=== PATIENT | male | born 1940 | race Caucasian/White ===

== ENCOUNTER → 2018-10-14 13:23 | Outpatient (CLI) | payer MEDICARE, SELFPAY ==
[2016-09-01 09:00] VITALS: BMI 30.7
--- NOTE | 2018-10-14 13:28 | RAD_ITS ---
STUDY: X-RAY - LUMBAR SPINE REASON FOR EXAM: Male, 78 years old. Low back pain, right leg pain TECHNIQUE: 5 view(s) of the lumbar spine were obtained. COMPARISON: None FINDINGS: Normal lumbar lordosis. There is no substantial scoliosis. There is a normal alignment of the vertebrae from L1 to L4. There is a grade 1 spondylolisthesis at L4-5. L5 and S1 align anatomically.. There is multilevel endplate spondylosis of the lumbar vertebrae. There is multi-level degenerative disc disease with multi-level disc space narrowing, most pronounced at L4-5. There is no demonstrated fracture. There is atherosclerotic calcification of the abdominal aorta without a demonstrated aneurysm. RAD/L/S Spine Min 4 Views IMPRESSION: Degenerative changes of the spine, as detailed above. No demonstrated fracture, grade 1 spondylolisthesis at L4-5 Electronically Signed: Madi Butterfield MD at 13:59 EDT , Service support ,
== END ==
PROVIDERS: Family Provider Preventive Medicine Occupational Medicine; PCP Preventive Medicine Occupational Medicine; Referring Provider Nurse Practitioner Family; Visit Provider Nurse Practitioner Family
DX: M54.9 Dorsalgia, unspecified (principal)
CPT/HCPCS: 72110

== ENCOUNTER → 2018-12-30 12:55 | Outpatient (CLI) | payer MEDICARE, SELFPAY ==
[2016-09-01 09:00] VITALS: BMI 30.7
--- NOTE | 2018-12-30 12:59 | RAD_ITS ---
STUDY: X-RAY - CERVICAL SPINE REASON FOR EXAM: Male, 78 years old. BRACHIAL RADICULITIS -- h/o neck injury couple years ago s/p fall and hit his head/neck TECHNIQUE: 3 view(s) of the cervical spine were obtained. COMPARISON: CT cervical spine dated September 01, 2016 FINDINGS: Normal cervical lordosis. There is multi-level endplate spondylosis. There is multi-level degenerative disc disease with multilevel disc space narrowing. Findings are moderate at C6/C7 and C7/T1 The soft tissue structures are unremarkable. RAD/Cerv Spine 2 or 3 Views IMPRESSION: Moderate degenerative changes of the spine. Electronically Signed: Jackson Tate MD at 8:23 EDT Tel , Service support ,
== END ==
PROVIDERS: Family Provider Preventive Medicine Occupational Medicine; PCP Preventive Medicine Occupational Medicine; Referring Provider Preventive Medicine Occupational Medicine; Visit Provider Preventive Medicine Occupational Medicine
DX: M54.12 Radiculopathy, cervical region (principal); M54.2 Cervicalgia; G89.29 Other chronic pain
CPT/HCPCS: 72040

== ENCOUNTER → 2019-01-10 13:48 | Outpatient (CLI) | payer MEDICARE, SELFPAY ==
--- NOTE | 2019-01-10 13:56 | MRI_ITS ---
STUDY: MRI CERVICAL SPINE WITH AND WITHOUT CONTRAST REASON FOR EXAM: Male, 78 years old. Left weakness brachial radiculitis neck pain, history of prostate and thyroid cancer TECHNIQUE: Standardized fat and water weighted pulse sequences were obtained in the sagittal and axial following administration of IV Dotarem 18. COMPARISON: 01 September 2016 FINDINGS: Craniocervical junction and cervical spine are intact and alignment with minor, less than 2 mm, degree of intersegmental displacement. Marrow and paraspinal soft tissues are normal. There is moderate spondylotic compression at C3-C4, mild at C2-C3, C4-C5. There is ill-defined approximately 8 mm focus of myelomalacia at C3-C4. Remainder of the cord is normal in size, shape and signal. There are multilevel various degree predominantly right-sided foraminal stenoses. Appearance is similar to prior CT. MRI/Spine Cervical W/WO Contrast IMPRESSION: 1. Moderate spondylotic compression at C3-C4 with mild myelomalacia. Neurosurgical referral is advised. Electronically Signed: Franca Hadley, at 17:02 EDT Tel , Service support ,
[2019-01-10 14:30] LABS: EGFR FINGERSTICK > 60.0000 mL/min (>60)
== END ==
PROVIDERS: Family Provider Preventive Medicine Occupational Medicine; PCP Preventive Medicine Occupational Medicine; Referring Provider Preventive Medicine Occupational Medicine; Visit Provider Preventive Medicine Occupational Medicine
DX: R29.898 Other symptoms and signs involving the musculoskeletal system (principal); M54.12 Radiculopathy, cervical region
CPT/HCPCS: 72156; A9575

== ENCOUNTER → 2019-06-09 10:13 | Outpatient (CLI) | payer MEDICARE, SELFPAY ==
--- NOTE | 2019-06-09 10:32 | MRI_ITS ---
STUDY: MRI BRAIN WITHOUT CONTRAST REASON FOR EXAM: Male, 79 years old. focal neuro deficit, L sided weakness TECHNIQUE: Standardized multiplanar fat and water weighted pulse sequences were obtained. COMPARISON: CT of the head dated September 01, 2016 FINDINGS: There is mild cerebral atrophy with widening of the extra-axial spaces and ventricular dilatation. There are multiple white matter hyperintensities, distributed throughout the deep white matter tracts of the cerebral hemispheres, consistent with moderate chronic white matter ischemic changes. Normal bilateral basal ganglia. Normal thalami. There is no extra-axial fluid accumulation. Normal flow voids within the major intracranial circulation suggesting patency by spin echo criteria. Normal sella turcica, pituitary gland, infundibular stalk, optic chiasm and hypothalamus. Normal tectal plate and pineal gland. There are chronic white matter ischemic changes of the lizzy. The midbrain and medulla are otherwise normal. Again noted is the moderate atrophy of the cerebellum. Normal basal cisterns. Normal bilateral temporal bones. MRI/Brain without Contrast IMPRESSION: No acute intracranial abnormality. Moderate involutional changes. Electronically Signed: Jackson Tate MD at 12:59 EDT Tel , Service support ,
--- NOTE | 2019-06-09 10:32 | MRI_ITS ---
STUDY: MRI LUMBAR SPINE WITHOUT CONTRAST REASON FOR EXAM: Male, 79 years old. left sided weakness, spondylolisthesis TECHNIQUE: Standardized fat and water weighted pulse sequences were obtained in the sagittal and axial planes. COMPARISON: February 28, 2010 FINDINGS: T12-L1: Normal endplates. Normal disc height, desiccation and normal morphology. Normal bilateral facet joints. Normal central canal and bilateral lateral recesses. Normal bilateral intervertebral neural foramina. Normal lumbar lordosis. There is no substantial scoliosis. Normal conus medullaris that terminates at T12-L1 L1-2: Normal endplates. Normal disc height, desiccation and normal morphology. Normal bilateral facet joints. Normal central canal and bilateral lateral recesses. Normal bilateral intervertebral neural foramina. L2-3: Normal endplates. Normal disc height, desiccation and minor annular bulge.. Normal bilateral facet joints. Normal central canal and bilateral lateral recesses. Mild bilateral neural foraminal encroachment.. L3-4: Normal endplates. Normal disc height, desiccation and mild annular bulge. Bilateral facet arthropathy.. Mild narrowing of the central canal. Normal bilateral lateral recesses. Moderate bilateral neuroforaminal stenosis. L4-5: Grade 1 spondylolisthesis. Narrowed disc space with desiccation of disc and mild bulging disc osteophyte complex. Bilateral facet arthropathy and thickening of ligamenta flava greater on the right. Mild narrowing of the central canal. Moderate left lateral recess stenosis and severe narrowing on the right. Severe bilateral neuroforaminal stenosis exaggerated by shortened pedicles. L5-S1: Normal endplates. Normal disc height, desiccation and moderate annular bulge.. Bilateral facet arthropathy.. Mild narrowing of the central canal and bilateral recesses. Moderate to severe bilateral neuroforaminal stenosis.. Normal visualized sacral ala. Normal visualized paraspinous soft tissue structures. There is progressive worsening of disc disease noted at L3-4 since prior study. MRI/Spine Lumbar (Routine) IMPRESSION: No evidence for acute fracture or subluxation. Multilevel disc degeneration and spinal stenosis secondary to disc disease and facet arthropathy and thickening of ligamenta flava more severe at L4-5 exaggerated by shortened pedicles Electronically Signed: David Donohue MD at 16:24 EDT , Service support ,
== END ==
PROVIDERS: PCP Preventive Medicine Occupational Medicine
DX: R53.1 Weakness (principal); M43.10 Spondylolisthesis, site unspecified
CPT/HCPCS: 70551; 72148

== ENCOUNTER → 2019-08-31 12:17 | Outpatient (CLI) | payer MEDICARE, SELFPAY ==
--- NOTE | 2019-08-31 12:26 | MRI_ITS ---
ACR Level 3 findings have been noted. An addendum which confirms receipt of the report will follow. STUDY: MRI CERVICAL SPINE WITHOUT CONTRAST REASON FOR EXAM: Male, 79 years old. 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 COMPARISON: January 10, 2019 FINDINGS: Normal foramen magnum and brainstem-cervical cord junction. There is straightening of the normal cervical lordosis. C2-3: There is minimal disc space narrowing and endplates spondylosis. Mild disc osteophyte complex with mild central canal stenosis. Uncovertebral and facet arthropathy with mild right and minimal left foraminal stenosis. Findings are stable since prior examination C3-4: There is mild disc space narrowing and endplates spondylosis. Moderate disc osteophyte complex and dorsal ligamentous buckling with severe central canal stenosis and impingement of the spinal cord uncovertebral and facet arthropathy with severe right and moderate left foraminal stenosis. Findings are slightly increased since the prior examination. Again noted is minimal increased cord signal at this level, suggestive of myelomalacia C4-5: There is moderate disc space narrowing and endplates spondylosis. Mild disc osteophyte complex with mild central canal stenosis. Uncovertebral and facet arthropathy with moderate right and mild left foraminal stenosis. Findings are stable since prior examination C5-6: There is moderate disc space narrowing and endplates spondylosis. Mild disc osteophyte complex with mild central canal stenosis. Uncovertebral and facet arthropathy with severe right and mild left foraminal stenosis. There is minimal anterolisthesis. Findings are stable since prior examination C6-7: There is moderate disc space narrowing and endplates spondylosis. Mild disc osteophyte complex without significant central canal stenosis. Uncovertebral and facet arthropathy with mild right and mild left foraminal stenosis. Findings are stable since prior examination C7-T1: There is severe disc space narrowing and endplates spondylosis. Mild disc osteophyte complex with mild central canal stenosis. Uncovertebral arthropathy with moderate right and mild left thrombosis. Findings are stable since the prior examination. MRI/Spine Cervical (Routine) IMPRESSION: C3/C4: Slightly increased severe central canal stenosis with cord compression. Electronically Signed: Jackson Tate MD at 14:11 EDT Tel , Service support ,
== END ==
PROVIDERS: PCP Preventive Medicine Occupational Medicine; Referring Provider Psychiatry & Neurology Neurology; Visit Provider Psychiatry & Neurology Neurology
DX: G12.29 Other motor neuron disease (principal)
CPT/HCPCS: 72141

== ENCOUNTER → 2020-01-24 13:49 | Outpatient (CLI) | payer MEDICARE, SELFPAY ==
--- NOTE | 2020-01-24 14:00 | RAD_ITS ---
STUDY: X-RAY - CERVICAL SPINE REASON FOR EXAM: Male, 79 years old. POST OP FOLLOW UP TECHNIQUE: 8 view(s) of the cervical spine were obtained including flexion and extension. COMPARISON: None FINDINGS: Normal anterior atlantoaxial articulation. Normal odontoid process. Decreased cervical lordosis. Postsurgical changes status post anterior fusion at C3-4.. There is narrowing of C4-5 C5-6, C6-7 and C7-T1 with osteophytic spurring Films obtained in flexion-extension demonstrate limited range of motion and no evidence for gross instability The soft tissue structures are unremarkable. RAD/Cerv Spine Obl/Flex/Ext Comp IMPRESSION: Moderate spondylosis. Postsurgical changes status post anterior fusion at C3-4 Electronically Signed: David Donohue MD at 22:37 EST , Service support ,
== END ==
PROVIDERS: PCP Preventive Medicine Occupational Medicine
DX: G95.9 Disease of spinal cord, unspecified (principal)
CPT/HCPCS: 72052

== ENCOUNTER 2020-07-16 08:21 | Emergency (ER) | payer MEDICARE, SELFPAY ==
[2020-07-16 08:23] VITALS: BP 173/80; PULSE 86; RESP 18; TEMP 36.6; O2SAT 98; BMI 36.3
--- NOTE | 2020-07-16 08:45 | EKG12_ITS ---
Test Reason : PALPS Blood Pressure : / mmHG Vent. Rate : 082 BPM Atrial Rate : 082 BPM P-R Int : 166 ms QRS Dur : 076 ms QT Int : 358 ms P-R-T Axes : 036 001 060 degrees QTc Int : 418 ms Sinus rhythm with sinus arrhythmia with occasional Premature ventricular complexes Low voltage QRS Borderline ECG Confirmed by ELE ADKINS, BEVERLEY ([id number]), primer expeditor and drier KESHIA GUILLERMO ([id number]) on 07/18/2020 8:56:21 AM Referred By: SUSI Confirmed By:BEVERLEY MARLOW MD
--- NOTE | 2020-07-16 08:47 | ED.VIS.GEN ---
History of Present Illness Chief Complaint: Palpitations Informant: Patient, Significant Other Narrative: 80-year-old male presents for the evaluation of palpitations. He reports a history of hypertension hypercholesterolemia and acquired hypothyroidism. He states that yesterday morning he was laying in bed and had about 3 minutes of sensation that his heart was racing and that resolved and the rest of his day was fine. This morning he was laying on his right side and his heart was racing again and he felt short of breath. It resolved about 10 or 15 minutes. He denies any known lung conditions. No chest pain. He states he feels extremely anxious right now. - Past Medical History (1) Benign essential hypertension Status: Chronic (2) Familial combined hyperlipidemia Status: Chronic (3) Former smoker Status: Chronic Comment: Z87.891 (4) Personal history of skin cancer Status: Chronic Comment: Z85.828 (5) history of hemorrhagic stroke Status: Chronic Past Medical History - Allergies and Home Meds Allergies/Adverse Reactions: Allergies guaifenesin [From Entex [place]] Allergy (Verified 09/01/16 09:11) Unknown PER DR STRONG'S ORDERS phenylephrine [From [employer]tex [place]] Allergy (Verified 09/01/16 09:11) Unknown PER DR STRONG'S ORDERS phenylpropanolamine [From [employer]tex [place]] Allergy (Verified 09/01/16 09:11) Unknown PER DR STRONG'S ORDERS Primary Care Physician: Jonathan Arredondo DO [Primary Care Provider] - As soon as possible Surgical History: noncontributory Lives: Spouse/ Significant Other Smoking Status: Former smoker Drugs: None Review of Systems General: Denies: Chills, Fever, Sweats Eyes: Denies: Visual changes - bilaterally, Diplopia ENT: Denies: Rhinorrhea, Sore throat Cardiovascular: Reports: Palpitations, Heart racing. Denies: Chest pain Respiratory: Reports: Dyspnea. Denies: Cough, Dyspnea on exertion Gastrointestinal: Denies: Abdominal pain, Nausea, Vomiting, Diarrhea, Melena, Hematochezia Genitourinary: Denies: Dysuria, Hematuria, Frequency Musculoskeletal: Denies: Back pain, Extremity Pain Skin: Denies: Rash, Wounds Neurological: Denies: Headache, Weakness, Numbness Physical Exam Vital Signs/Narrative: Vital Signs Temp Pulse Resp BP Pulse Ox 07/16/20 08:23 97.8 F 86 18 173/80 H 98 Inital Vital Signs reviewed: Yes General: Well nourished, Well developed, No Acute Distress Head: Normocephalic, Atraumatic Eyes: Perrl, EOMI ENT: Moist mucous membranes, No rhinorrhea Neck: Supple, Nontender Cardiovascular: Regular rate, Regular rhythm, No murmurs Respiratory: No distress, CTA bilaterally, Chest nontender Abdomen: Soft, Nontender, Nondistended, Normal bowel sounds Back: Nontender, Normal Inspection Extremities: Nontender, No edema Skin: Normal color, No rash Neurological: Alert, Oriented x3, Cranial nerves II-XII grossly intact, Normal Strength, Normal Sensation Psychological: Normal affect, Normal Mood Diagnostic/Tx/Re-eval Clinical Impression(s) from Imaging Studies Chest X-Ray 07/16/20 08:56 IMPRESSION: Mild increased markings at the lung bases suggests a mild degree of linear scarring. Electronically Signed: Jeff Justice MD at 9:12 EDT , Service support , Laboratory Last Values WBC 7.6 K/mm3 (4.4-11.0) 07/16/20 09:00 RBC 5.26 M/mm3 (4.6-6.2) 07/16/20 09:00 Hgb 14.5 g/dL (13.0-16.5) 07/16/20 09:00 Hct 45.3 % (40-54) 07/16/20 09:00 MCV 86.1 fL (80-94) 07/16/20 09:00 MCH 27.6 pg (27.0-32.0) 07/16/20 09:00 MCHC 32.0 g/dL (32-36) 07/16/20 09:00 RDW Std Deviation 41.1 fl (35.1-43.9) 07/16/20 09:00 RDW Coeff of Nicky 13.2 % (11.6-14.6) 07/16/20 09:00 Plt Count 240 K/mm3 (150-450) 07/16/20 09:00 MPV 9.5 fl (6.2-12.0) 07/16/20 09:00 Immature Gran % (Auto) 0.400 % (0.0-0.9) 07/16/20 09:00 Neut % (Auto) 54.5 % (47-70) 07/16/20 09:00 Lymph % (Auto) 34.6 % (19-41) 07/16/20 09:00 [place] % (Auto) 7.1 % (0-10) 07/16/20 09:00 Eos % (Auto) 2.9 % (0-5) 07/16/20 09:00 Baso % (Auto) 0.5 % (0-1) 07/16/20 09:00 Absolute Neuts (auto) 4.2 X10^3/uL (2.0-7.7) 07/16/20 09:00 Absolute Lymphs (auto) 2.63 X10^3/uL (0.83-4.51) 07/16/20 09:00 Nucleated RBC % 0 % (0-5) 07/16/20 09:00 PT 12.1 SECONDS (11.7-14.9) 07/16/20 09:00 INR 1.0 07/16/20 09:00 APTT 27.9 Seconds (24.1-36.2) 07/16/20 09:00 Sodium 140 mmol/L (136-145) 07/16/20 09:00 Potassium 4.0 mmol/L (3.5-5.1) 07/16/20 09:00 Chloride 103 mmol/L (98-107) 07/16/20 09:00 Carbon Dioxide 31.0 mmol/L (21.0-32.0) 07/16/20 09:00 Anion Gap 6 (5-15) 07/16/20 09:00 BUN 19 mg/dL (7-18) H 07/16/20 09:00 Creatinine 1.16 mg/dL (0.70-1.30) 07/16/20 09:00 Estim Creat Clear Calc 45.83 ml/min 07/16/20 09:00 Est GFR (MDRD) Af Amer 78 mL/min (>60) 07/16/20 09:00 Est GFR (MDRD) Non-Af 64 mL/min (>60) 07/16/20 09:00 BUN/Creatinine Ratio 16.4 RATIO (10-20) 07/16/20 09:00 Glucose 110 mg/dL (74-106) H 07/16/20 09:00 Calcium 8.8 mg/dL (8.5-10.1) 07/16/20 09:00 Magnesium 2.1 mg/dL (1.6-2.6) 07/16/20 09:00 Troponin I < 0.015 ng/mL (<0.045) 07/16/20 09:00 TSH 2.05 uIU/mL (0.358-3.74) 07/16/20 09:00 - EKG Initial EKG Interpretation: Sinus Rhythm - EKG demonstrates a sinus rhythm with sinus arrhythmia with noted PVCs. Ventricular rate at 82. - Medical Decision Making Patient was extremely anxious and I gave him 1/2 mg of Ativan. He has been resting comfortably. Heart rate is down into the 70s. he was observed on the monitors had no dysrhythmias. He has has had some PVCs noted. EKG is sinus. Basic blood work including electrolytes are negative. My interpretation of the chest x-ray is no acute disease. Normal mediastinal silhouette. Approximately 2-1/2 hours on the monitor no dysrhythmias were noted. Patient will be discharged home instructions to follow-up with his primary care doctor. ED Disposition - Plan for ED Patient: Disposition: Home or Assisted Living Diagnosis: Palpitations Instructions: ED Palpitations Referrals: Jonathan Arredondo DO [Primary Care Provider] - As soon as possible
--- NOTE | 2020-07-16 08:56 | RAD_ITS ---
STUDY: X-RAY CHEST REASON FOR EXAM: Male, 80 years old. Chest pain TECHNIQUE: Single AP portable view of the chest. COMPARISON: Comparison is made with prior study dated 12/04/2012. FINDINGS: EKG electrodes are seen. There are mild increased linear markings at the lung bases suggestive of mild scarring. There is no demonstrated pleural abnormality. Normal size heart. Normal mediastinum and bianka. Normal visualized pulmonary arteries. There is atherosclerotic calcification of the aortic arch with tortuosity. There are diffuse degenerative changes of the visualized thoracic spine. Normal visualized ribs, clavicles, and shoulders. There is no demonstrated abnormality of the visualized soft tissue structures of the upper abdomen. RAD/Chest 1 View (Portable) IMPRESSION: Mild increased markings at the lung bases suggests a mild degree of linear scarring. Electronically Signed: Jeff Justice MD at 9:12 EDT , Service support ,
[2020-07-16] MEDS: LORazepam 2 MG/ML Syringe 0.5 MG IV (09:01)
[2020-07-16 09:16] LABS: Absolute Lymphocyte Count 2.63 X10^3/uL (0.83-4.51); Absolute Neutrophil Count 4.2 X10^3/uL (2.0-7.7); Basophil# 0.04 X10^3/uL; Basophil% 0.5 % (0-1); Eosinophil# 0.22 X10^3/uL; Eosinophils% 2.9 % (0-5); Hematocrit 45.3 % (40-54); Hemoglobin 14.5 g/dL (13.0-16.5); Lymphocyte # 2.63 X10^3/ul (0.83-4.51); Lymphocyte % 34.6 % (19-41); Mean Corpuscular Hgb 27.6 pg (27.0-32.0); Mean Corpuscular Volume 86.1 fL (80-94); Mean Platelet Vol. 9.5 fl (6.2-12.0); Monocyte# 0.54 X10^3/uL; Monocyte% 7.1 % (0-10); NRBC Flagged by Analyzer 0 % (0-5); Neutrophil # 4.15 X10^3/uL (2.7-7.7); Neutrophil % 54.5 % (47-70); Platelet Count 240 K/mm3 (150-450); RBC Distribution Width CV 13.2 % (11.6-14.6); RBC Distribution Width SD 41.1 fl (35.1-43.9); Red Blood Count 5.26 M/mm3 (4.6-6.2); White Blood Count 7.6 K/mm3 (4.4-11.0)
[2020-07-16 09:24] LABS: Prothrombin Time (Protime)PT. 12.1 SECONDS (11.7-14.9)
[2020-07-16 09:25] LABS: Partial Thromboplast Time 27.9 Seconds (24.1-36.2)
[2020-07-16 09:41] LABS: Anion Gap 6 (5-15); BUN 19 mg/dL (7-18); BUN/Creat Ratio 16.4 RATIO (10-20); Calcium,Total 8.8 mg/dL (8.5-10.1); Chloride 103 mmol/L (98-107); Creatinine, Serum 1.16 mg/dL (0.70-1.30); EST Glomerular Filtration Rate 64 mL/min (>60); Est Glom Filt Rate - Afr Amer 78 mL/min (>60); Estimated Creatinine Clearance 45.83 ml/min; Glucose 110 mg/dL (74-106); Magnesium 2.1 mg/dL (1.6-2.6); Sodium Level 140 mmol/L (136-145); Thyroid Stim Hormone (TSH) 2.05 uIU/mL (0.358-3.74)
[2020-07-16 10:18] VITALS: BP 147/70; PULSE 69; RESP 18; O2SAT 96
[2020-07-16 11:23] VITALS: BP 140/69; PULSE 78; RESP 16; O2SAT 96
== END 2020-07-16 11:23 | disposition home or self-care (01) ==
PROVIDERS: Emergency Provider Emergency Medicine; PCP Preventive Medicine Occupational Medicine
DX: R00.2 Palpitations (principal); I10 Essential (primary) hypertension; E78.49 Other hyperlipidemia; E03.9 Hypothyroidism, unspecified; Z87.891 Personal history of nicotine dependence; Z86.73 Personal history of transient ischemic attack (TIA), and cerebral infarction without residual deficits; Z85.828 Personal history of other malignant neoplasm of skin; R06.02 Shortness of breath
CPT/HCPCS: 71045; 80048; 83735; 84443; 84484; 85025; 85610; 85730; 93005; 96374; 99285; A4216

== ENCOUNTER → 2020-11-07 13:06 | Outpatient (CLI) | payer MEDICARE, SELFPAY ==
[2020-11-07 14:29] LABS: Thyroid Stim Hormone (TSH) 2.08 uIU/mL (0.358-3.74)
== END ==
PROVIDERS: PCP Preventive Medicine Occupational Medicine; Referring Provider Preventive Medicine Occupational Medicine; Visit Provider Preventive Medicine Occupational Medicine
DX: E03.9 Hypothyroidism, unspecified (principal)
CPT/HCPCS: 36415; 84443

== ENCOUNTER → 2020-11-13 10:54 | Outpatient (CLI) | payer MEDICARE, SELFPAY | PROVIDERS: PCP Preventive Medicine Occupational Medicine; Referring Provider Preventive Medicine Occupational Medicine; Visit Provider Preventive Medicine Occupational Medicine | DX: R00.2 Palpitations (principal) | CPT/HCPCS: 93225; 93226 ==

== ENCOUNTER 2021-05-26 04:26 | Inpatient (IN) | payer MEDICARE, SELFPAY ==
[2021-05-26] VITALS (14 sets, daily range): BP systolic 126–153; BP diastolic 61–85; PULSE 75–98; RESP 14–18; TEMP 36.4–36.7; O2SAT 83–96; BMI 37.0; BMI 35.4
--- NOTE | 2021-05-26 04:36 | CT_ITS ---
STUDY: CT CERVICAL SPINE WITHOUT CONTRAST REASON FOR EXAM: Male, 81 years old. fall, neck injury RADIATION DOSAGE (If Supplied By Facility): CTDIvol = ( 25.94 ) mGy, DLP = ( 545.88 ) mGycm TECHNIQUE: High resolution transaxial imaging was performed without contrast material. Sagittal and coronal images were reconstructed. Individualized dose optimization techniques were used for this CT. COMPARISON: None FINDINGS: Normal craniovertebral junction. Normal anterior atlantoaxial articulation. Normal odontoid process. There is straightening of the normal cervical lordosis. Normal vertebral bodies and posterior osseous elements. C2-3: Normal endplates. Normal disc height and morphology. Normal central canal and intervertebral neuroforamina. C3-4, there is anterior fusion. There is solid bone bridging between the vertebral bodies. C4-5, C5-6, C6-7: Endplate spondylosis. Central and paracentral disc bulge. Degenerative changes of the bilateral facet joints and uncovertebral joints. [id number] narrowing of the central canal and the bilateral intervertebral neural foramina. C7-T1: Normal endplates. Normal disc height and morphology. Normal central canal and intervertebral neuroforamina. Normal visualized soft tissue structures. CT/Spine Cervical without Contras IMPRESSION: Multilevel degenerative changes, as described above. Electronically Signed: Colleen Bass MD at 5:28 EST ,
--- NOTE | 2021-05-26 04:36 | RAD_ITS ---
STUDY: X-RAY - LUMBAR SPINE REASON FOR EXAM: Male, 81 years old patient with low back pain after fall. TECHNIQUE: AP and lateral view(s) of the lumbar spine were obtained. COMPARISON: MRI of the lumbar spine dated 06/09/2019. FINDINGS: Normal lumbar lordosis. There is no substantial scoliosis. There is a normal alignment of the vertebrae. There is multilevel endplate spondylosis of the lumbar vertebrae. There is multi-level degenerative disc disease with multi-level disc space narrowing. There is no demonstrated fracture. There is mild anterolisthesis at L4-5. There is atherosclerotic calcification of the abdominal aorta without a demonstrated aneurysm. There is no obvious organomegaly, mass, or dilated bowel. RAD/Lumbar Spine 2 or 3 Views IMPRESSION: Multilevel degenerative disc disease and degenerative arthropathy of the lumbar spine. Electronically Signed: Dayanara Mock MD at 5:56 EST ,
--- NOTE | 2021-05-26 04:36 | CT_ITS ---
STUDY: CT BRAIN WITHOUT CONTRAST REASON FOR EXAM: Male, 81 years old. fall/trauma RADIATION DOSAGE (If Supplied By Facility): CTDIvol = ( 44.99 ) mGy, DLP = ( 829.85 ) mGycm TECHNIQUE: Transaxial CT imaging of the brain was performed without administration of intravenous contrast material. Individualized dose optimization techniques were used for this CT. COMPARISON: No relevant priors. FINDINGS: Normal soft tissue structures. Normal calvarium. There is moderate cerebral atrophy with widening of the extra-axial spaces and ventricular dilatation. There are areas of decreased attenuation within the white matter tracts of the supratentorial brain, consistent with microvascular disease changes. Normal basal ganglia and thalami. Normal brainstem. Severe cerebellar atrophy. There is no intracranial hemorrhage. There are no findings of an acute ischemic infarction. Normal visualized paranasal sinuses. CT/Brain/Head without Contrast IMPRESSION: Chronic involutional changes of the brain. Electronically Signed: Colleen Bass MD at 5:23 EST ,
--- NOTE | 2021-05-26 04:36 | RAD_ITS ---
STUDY: X-RAY - THORACIC SPINE REASON FOR EXAM: Male, 81 years old patient with back pain after fall. TECHNIQUE: AP and lateral view(s) of the thoracic spine were obtained. COMPARISON: Prior comparable comparison studies are not available for review at this time. FINDINGS: The patient has had previous surgery in the cervical spine. Normal kyphosis of the thoracic spine. There is no substantial scoliosis. There is demineralization of the thoracic spine with endplate spondylosis. There is multilevel disc space narrowing of the thoracic spine. The soft tissue structures are unremarkable. RAD/Thoracic Spine 2 Views IMPRESSION: 1. No evidence for acute compression fracture. 2. Multilevel degenerative changes of the thoracic spine. Electronically Signed: Dayanara Mock MD at 5:59 EST ,
--- NOTE | 2021-05-26 04:37 | EDS_ITS ---
HPI HPI - Fall History of Present Illness Chief Complaint: Fall Informant: patient, spouse/S.O. and EMS Occured/Mechanism Occurred: Today (JPTA) Mechanism/Context: Yes same level fall and Yes trip Usually ambulates: Walker (Only when walking short distances otherwise in wheelchair) Pain/Injury Pain Location: head, neck and back Quality of Pain: Aching Current Severity: 0/10 (since I'm just sitting here) Maximum Severity: Moderate Worsened by: movement Relieved by: remaining still Associated Symptoms Associated Symptoms: Negative for Parasthesias, Weakness, Loss of function, Loss of consciousness and Amnesia Narrative Narrative: This patient lives at home with his and has a history of spinal stenosis to the point where he cannot walk and for the most part is wheelchair- bound, although he uses his walker to transition and to walk very short distances such as from the bedroom to the bathroom at home which is what he was doing tonight and his foot or walker or both got caught up and he tripped and fell. He had no prodromal symptoms and has had no recent illness. Hit the back of his head, neck and back, and was found lying on his left hip by EMS where he is also having pain. [facility] Medical History Arthritis Hypertension Spinal stenosis Stroke/cerebrovascular accident Home Medications amlodipine 10 mg PO QHS 12/10/15 [History Last Taken 07/15/20] atorvastatin 20 mg PO QHS 12/10/15 [History Last Taken 07/15/20] levothyroxine 137 mcg PO DAILY 12/10/15 [History Last Taken 07/16/20] Centrum Silver 1 ea PO DAILY 03/28/16 [History Last Taken 07/15/20] calcium carbonate 2,000 mg PO DAILY@0800 03/28/16 [History Last Taken Unknown] cod liver oil 1 ea PO DAILY 03/28/16 [History Last Taken Unknown] aspirin 81 mg PO DAILY@0800 09/01/16 [History Last Taken Unknown] losartan-hydrochlorothiazide 1 each PO DAILY 07/16/20 [History Last Taken 06/22 09/10] Allergy/AdvReac Type Severity Reaction Status Date / Time guaifenesin [From Entex LA] Allergy Unknown Verified 05/26/21 04:36 phenylephrine [From Entex LA] Allergy Unknown Verified 05/26/21 04:36 phenylpropanolamine Allergy Unknown Verified 05/26/21 04:36 [From Entex LA] Social History Smoking Status: Former smoker ROS ROS ED Constitutional Constitutional ED: Denies chills or fever(s) Eyes Eyes: Denies change in vision or diplopia ENT ENT ED: Denies ear pain, epistaxis, facial pain or rhinorrhea Cardiovascular Cardiovascular: Denies chest pain or palpitations Respiratory/Chest Respiratory/Chest: Denies cough or dyspnea Gastrointestinal Gastrointestinal: Reports nausea; Denies abdominal pain, diarrhea, melena or vomiting Genitourinary Genitourinary ED: Denies dysuria or hematuria Musculoskeletal Musculoskeletal: Denies back pain, extremity pain or neck pain Integumentary Denies abscess, Abrasions, laceration or rash Neurologic Neurologic: Denies confusion, headache(s), paresthesias or weakness EXAM Physical Exam Const Vital Signs: 05/26/21 04:27 05/26/21 06:57 Temperature 97.5 F L Temperature Source Temporal Pulse Rate 94 80 Respiratory Rate 18 15 Blood Pressure 149/85 H 138/68 H Blood Pressure Mean 106 91 Pulse Ox 93 95 Oxygen Delivery Method Room Air Nasal Cannula Oxygen Flow Rate (L/min) 2 Positive well nourished and well developed General Appearance ED: well developed and NAD HEENT Reports TM's clear and nasal mucous membranes and turbinates normal atraumatic Face and Sinus: Negative for facial tenderness Tympanic Membrane ED: Yes TM's clear Eyes PERRL and EOMs intact bilaterally Visual Acuity: other Other Details: no entrapment or pain with extraocular movements Neck Neck Narrative: Mild diffuse nonfocal tenderness. No step-off or obvious signs of trauma. Chest Wall inspection of chest normal and palpation of chest normal Chest: symmetrical chest wall rise; Negative for crepitus or tenderness Resp normal respiratory effort and clear to auscultation bilaterally Percussion: other equal BS bilat Cardio no murmurs Rate: regular rate Rhythm: regular rhythm GI normal to inspection, nondistended, normoactive bowel sounds, soft to palpation and non-tender Back/Spine normal ROM Back/Spine Narrative: Mild tenderness mid-lower thoracic spine and throughout the lumbosacral spine, all very mild without any obvious signs of trauma or step-off. Thoracic Spine / Upper Back: thoracic spinal tenderness Lumbar Spine / Lower Back: lumbar spinal tenderness Extremity normal to inspection and full ROM Extremity Narrative: Mildly tender left greater trochanter. No significant groin pain with internal/external rotation or flexion of the hip. Patient is able to range his joints of the lower extremities but limited ability to do it actively due to weakness that is chronic, I helped him manually and he was able to do more. General Extremety ED: Yes edema and tenderness General Extremity: edema bilateral lower extremity Details: moderate Neuro oriented x3, CN's II-XII intact bilaterally, moves all extremities and no sensory deficits noted Neuro Narrative: Neurologically intact with weakness in both lower extremities that is chronic and stable Myriam Coma Scale: document GCS findings Spontaneous Obeys Commands Oriented 15 Sensorium / Orientation: awake and alert Psych mental status grossly normal and thought process normal Skin no wounds Lesions: no lesions Rashes: no rashes MDM MDM MDM Narrative Medical decision making narrative: Radiography was performed to evaluate the patient for injuries, as noted below everything is negative including his left hip. I'm at a low suspicion of an occult hip fracture based on his exam. However, as we were waiting for imaging results, the patient had multiple episodes of hypoxemia and often was found sitting at 83% with an excellent waveform for several minutes. Evaluating him, he was half asleep, but with waking him up the didn't change anything until I got him to talk, then eventually I could get him up to 91% but then he would go back down to 83% on room air. Therefore we placed oxygen on him and obtained a chest x-ray, which shows bibasilar opacities suggestive of pneumonia versus CHF. His last echocardiogram was 9 years ago and it was normal and he does not have a history of CHF. However he does have a lot of edema in his legs. He has not been coughing or complaining of chest discomfort or shortness of breath. He has some occasional ectopy on the monitor but his rhythm is normal. Therefore at this time, I'm sending labs and giving the patient IV Lasix, and I think he should be admitted for further evaluation and work-up. It is possible this was the case at home and contributing to the reasons for his fall. Lab Data Attestation: I reviewed the patient's lab results. Labs: Laboratory Results - last 24 hr 05/26/21 05/26/21 05/26/21 06:40 06:40 06:40 WBC 9.9 RBC 4.81 Hgb 14.7 Hct 42.3 MCV 87.9 MCH 30.6 MCHC 34.8 RDW Std Deviation 41.9 RDW Coeff of Nicky 13.0 Plt Count 205 MPV 8.9 Immature Gran % (Auto) 0.800 Neut % (Auto) 78.5 H Lymph % (Auto) 14.0 L Harris % (Auto) 5.7 Eos % (Auto) 0.7 Baso % (Auto) 0.3 Absolute Neuts (auto) 7.8 H Absolute Lymphs (auto) 1.38 Nucleated RBC % 0 Sodium 141 Potassium 3.4 L Chloride 106 Carbon Dioxide 31.0 Anion Gap 4 L BUN 20 H Creatinine 1.08 Estim Creat Clear Calc 48.41 Est GFR (MDRD) Af Amer 84 Est GFR (MDRD) Non-Af 70 BUN/Creatinine Ratio 18.5 Glucose 135 H Calcium 9.2 B-Natriuretic Peptide 17.9 Radiography Diagnostic Testing: Clinical Impression(s) from Imaging Studies Brain CT 05/26/21 04:36 IMPRESSION: Chronic involutional changes of the brain. Electronically Signed: Colleen Bass MD at 5:23 EST , Cervical Spine CT 05/26/21 04:36 IMPRESSION: Multilevel degenerative changes, as described above. Electronically Signed: Colleen Bass MD at 5:28 EST , Lumbar Spine X-Ray 05/26/21 04:36 IMPRESSION: Multilevel degenerative disc disease and degenerative arthropathy of the lumbar spine. Electronically Signed: Dayanara Mock MD at 5:56 EST Reading Location ID and State: [facility] / [place] , Service support , Thoracic Spine X-Ray 05/26/21 04:36 IMPRESSION: 1. No evidence for acute compression fracture. 2. Multilevel degenerative changes of the thoracic spine. Electronically Signed: Dayanara Mock MD at 5:59 EST Reading Location ID and State: [id number] / [employer] , Service support , Hip/Pelvis X-Ray 05/26/21 05:20 IMPRESSION: Degenerative arthropathy of left hip without obvious acute fracture or dislocation. Electronically Signed: Dayanara Mock MD at 5:51 EST , Chest X-Ray 05/26/21 05:55 IMPRESSION: 1. Expiratory chest radiograph with cardiomegaly and mild pulmonary vascular congestion. 2. Left basilar airspace consolidation may represent pneumonia. Electronically Signed: Dayanara Mock MD at 6:15 EST Reading Location ID and State: [id number] / [employer] , Service support , Rhythm Strip Rhythm Strip: Sinus Rhythm Rate: 85 Ectopy: PVC(s) Discharge Plan Dx/Rx/DC Orders Clinical Impression: Hypoxemia, Fall from slip, trip, or stumble, Closed head injury without loss of consciousness, Contusion of hip, left, Back contusion, Pulmonary congestion Disposition Disposition: Acute Care [facility]
[2021-05-26] MEDS: Ondansetron ODT 4 MG Tablet 8 MG PO (04:44)
--- NOTE | 2021-05-26 05:20 | RAD_ITS ---
STUDY: X-RAY - PELVIS AND LEFT HIP REASON FOR EXAM: Male, 81 years old patient with left hip injury after fall. TECHNIQUE: 3 views of the pelvis and hip. COMPARISON: None. FINDINGS: There is a non-specific bowel gas pattern. 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 The sacrum and iliac wings are obscured by bowel gas and/or stool. Normal bilateral superior and inferior pubic rami. Normal pubic symphysis. Normal bilateral ischial tuberosities. There are osteoarthritic changes of the femoral head with marginal osteophyte formation. Normal acetabulum. Normal hip joint. There are degenerative changes of the lower lumbar spine. RAD/HIP, UNI W/ Pelvis 2-3 Views IMPRESSION: Degenerative arthropathy of left hip without obvious acute fracture or dislocation. Electronically Signed: Dayanara Mock MD at 5:51 EST ,
--- NOTE | 2021-05-26 05:55 | RAD_ITS ---
STUDY: X-RAY CHEST REASON FOR EXAM: Male, 81 years old patient with hypoxia. TECHNIQUE: Single AP portable view of the chest. COMPARISON: 07/16/2020. FINDINGS: Cardiac monitoring leads are present. Lungs are underexpanded with crowding of the bronchovascular markings and obscuration of the lung bases. There is patchy left basilar airspace consolidation suggesting possible pneumonia. There are small bilateral pleural effusions. There is eventration of right hemidiaphragm. There is mild cardiac enlargement. Normal mediastinum and bianka. Normal visualized pulmonary arteries. There is atherosclerotic calcification of the aortic arch with tortuosity. There are diffuse degenerative changes of the visualized thoracic spine. There are degenerative changes of both shoulders. There is no demonstrated abnormality of the visualized soft tissue structures of the upper abdomen. RAD/Chest 1 View (Portable) IMPRESSION: 1. Expiratory chest radiograph with cardiomegaly and mild pulmonary vascular congestion. 2. Left basilar airspace consolidation may represent pneumonia. Electronically Signed: Dayanara Mock MD at 6:15 EST ,
[2021-05-26 06:48] LABS: Absolute Lymphocyte Count 1.38 X10^3/uL (0.83-4.51); Absolute Neutrophil Count 7.8 X10^3/uL (2.0-7.7); Basophil# 0.03 X10^3/uL; Basophil% 0.3 % (0-1); Eosinophil# 0.07 X10^3/uL; Eosinophils% 0.7 % (0-5); Hematocrit 42.3 % (40-54); Hemoglobin 14.7 g/dL (13.0-16.5); Lymphocyte # 1.38 X10^3/ul (0.83-4.51); Mean Corp Hgb Conc 34.8 g/dL (32-36); Mean Corpuscular Hgb 30.6 pg (27.0-32.0); Mean Corpuscular Volume 87.9 fL (80-94); Mean Platelet Vol. 8.9 fl (6.2-12.0); Monocyte# 0.56 X10^3/uL; Monocyte% 5.7 % (0-10); NRBC Flagged by Analyzer 0 % (0-5); Neutrophil # 7.76 X10^3/uL (2.7-7.7); Neutrophil % 78.5 % (47-70); Platelet Count 205 K/mm3 (150-450); RBC Distribution Width SD 41.9 fl (35.1-43.9); Red Blood Count 4.81 M/mm3 (4.6-6.2); White Blood Count 9.9 K/mm3 (4.4-11.0)
[2021-05-26] MEDS: Furosemide 20 MG/2 ML VIAL IV ×2 (06:55→09:57)
[2021-05-26 07:01] LABS: Anion Gap 4 (5-15); BUN 20 mg/dL (7-18); BUN/Creat Ratio 18.5 RATIO (10-20); Calcium,Total 9.2 mg/dL (8.5-10.1); Chloride 106 mmol/L (98-107); Creatinine, Serum 1.08 mg/dL (0.70-1.30); EST Glomerular Filtration Rate 70 mL/min (>60); Est Glom Filt Rate - Afr Amer 84 mL/min (>60); Estimated Creatinine Clearance 48.41 ml/min; Glucose 135 mg/dL (74-106); Potassium 3.4 mmol/L (3.5-5.1); Sodium Level 141 mmol/L (136-145)
--- NOTE | 2021-05-26 07:03 | NURSING ---
DR SHANNON FOR DR MCCALL
[2021-05-26 07:09] LABS: BNP,B-Type NATRIURETIC PEPTIDE 17.9 pg/mL (0-100)
--- NOTE | 2021-05-26 07:26 | NURSING ---
pcu jopperi hypoxemia, pulmonary congestion, fall/contusions, debility
--- NOTE | 2021-05-26 07:27 | PCM.HP.STD ---
HPI - General General Date of Admission: 05/26/21 Date of Service: 05/26/21 Chief Complaint: fall HPI Narrative OXANA ZELAYA, is a 81 M who presents presents after a fall. Patient did not hit his head but had x-ray that showed no fracture. Patient was noted to be hypoxic with pulse ox in the 80s range. Chest x-ray was concerning for CHF patient did receive a dose of 20 mg of IV furosemide. Patient notes that he has had increased lower extremity edema. [facility] Medical History Arthritis Hypertension Spinal stenosis Stroke/cerebrovascular accident Home Medications amlodipine 10 mg PO QHS 12/10/15 [History Last Taken 07/15/20] atorvastatin 20 mg PO QHS 12/10/15 [History Last Taken 07/15/20] levothyroxine 137 mcg PO DAILY 12/10/15 [History Last Taken 07/16/20] Centrum Silver 1 ea PO DAILY 03/28/16 [History Last Taken 07/15/20] calcium carbonate 2,000 mg PO DAILY@0800 03/28/16 [History Last Taken Unknown] cod liver oil 1 ea PO DAILY 03/28/16 [History Last Taken Unknown] aspirin 81 mg PO DAILY@0800 09/01/16 [History Last Taken Unknown] losartan-hydrochlorothiazide 1 each PO DAILY 07/16/20 [History Last Taken 07/16/20] Allergy/AdvReac Type Severity Reaction Status Date / Time guaifenesin [From Entex LA] Allergy Unknown Verified 05/26/21 04:36 phenylephrine [From Entex LA] Allergy Unknown Verified 05/26/21 04:36 phenylpropanolamine Allergy Unknown Verified 05/26/21 04:36 [From Entex LA] Social History Smoking Status: Former smoker ROS ROS Narrative 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 States that he has been intermittently short of breath. Does have some left-sided chest pain at times. All review of systems were negative except as mentioned above in the history of present illness and the other review of systems. Vital Signs Vital Signs Vital Signs: 05/26/21 04:27 05/26/21 05:30 05/26/21 06:00 Temperature 36.4 C L Temperature Source Temporal Pulse Rate 94 87 94 Respiratory Rate 18 16 16 Blood Pressure 149/85 H 153/73 H 151/78 H Blood Pressure Mean 106 99 102 Pulse Ox 93 83 95 Oxygen Delivery Method Room Air Room Air Nasal Cannula Oxygen Flow Rate (L/min) 2 05/26/21 06:57 Temperature Temperature Source Pulse Rate 80 Respiratory Rate 15 Blood Pressure 138/68 H Blood Pressure Mean 91 Pulse Ox 95 Oxygen Delivery Method Nasal Cannula Oxygen Flow Rate (L/min) 2 Weight Weight: 104.3 kg Body Mass Index (BMI) 37.0 Physical Exam Const alert General Appearance: cooperative HEENT normocephalic, head/scalp atraumatic, hearing grossly normal bilaterally and moist oral mucous membranes Eyes PERRL Resp normal respiratory effort, no retractions, no use of accessory muscles and clear to auscultation bilaterally Cardio regular rate, regular rhythm, S1 normal heart sound and S2 normal heart sound GI normal to inspection, nondistended, normoactive bowel sounds, soft to palpation, non-tender and non-distended Extremity Extremity Narrative: Edema in lower extremity Skin no rashes or lesions noted Neuro Neuro Narrative: Dysarthria Sensorium / Orientation: awake and alert Results Lab / Micro Data Attestation: I reviewed the patient's lab results. Result Diagrams: 05/26/21 06:40 05/26/21 06:40 Labs: Laboratory Results - last 24 hr 05/26/21 06:40: WBC 9.9, RBC 4.81, Hgb 14.7, Hct 42.3, MCV 87.9, MCH 30.6, MCHC 34.8, RDW Std Deviation 41.9, RDW Coeff of Nicky 13.0, Plt Count 205, MPV 8.9, Immature Gran % (Auto) 0.800, Neut % (Auto) 78.5 H, Lymph % (Auto) 14.0 L, [place] % (Auto) 5.7, Eos % (Auto) 0.7, Baso % (Auto) 0.3, Absolute Neuts (auto) 7.8 H, Absolute Lymphs (auto) 1.38, Nucleated RBC % 0 05/26/21 06:40: Sodium 141, Potassium 3.4 L, Chloride 106, Carbon Dioxide 31.0, Anion Gap 4 L, BUN 20 H, Creatinine 1.08, Estim Creat Clear Calc 48.41, Est GFR (MDRD) Af Amer 84, Est GFR (MDRD) Non-Af 70, BUN/Creatinine Ratio 18.5, Glucose 135 H, Calcium 9.2 05/26/21 06:40: B-Natriuretic Peptide 17.9 Rhythm Strip Rhythm Strip: Sinus Rhythm Rate: 85 Ectopy: PVC(s) Radiology Impression Brain CT 05/26/21 04:36 IMPRESSION: Chronic involutional changes of the brain. Electronically Signed: Colleen Bass MD at 5:23 EST , Cervical Spine CT 05/26/21 04:36 IMPRESSION: Multilevel degenerative changes, as described above. Electronically Signed: Colleen Bass MD at 5:28 EST , Lumbar Spine X-Ray 05/26/21 04:36 IMPRESSION: Multilevel degenerative disc disease and degenerative arthropathy of the lumbar spine. Electronically Signed: Dayanara Mock MD at 5:56 EST , Thoracic Spine X-Ray 05/26/21 04:36 IMPRESSION: 1. No evidence for acute compression fracture. 2. Multilevel degenerative changes of the thoracic spine. Electronically Signed: Dayanara Mock MD at 5:59 EST , Hip/Pelvis X-Ray 05/26/21 05:20 IMPRESSION: Degenerative arthropathy of left hip without obvious acute fracture or dislocation. Electronically Signed: Dayanara Mock MD at 5:51 EST , Chest X-Ray 05/26/21 05:55 IMPRESSION: 1. Expiratory chest radiograph with cardiomegaly and mild pulmonary vascular congestion. 2. Left basilar airspace consolidation may represent pneumonia. Electronically Signed: Dayanara Mock MD at 6:15 EST Reading Location ID and State: [facility] / [place] , Service support , Assessment & Plan Assessment/Plan (1) CHF exacerbation: QUALIFIERS: Heart failure type: unspecified Qualified Code(s): I50.9 - Heart failure, unspecified (2) Hypoxemia: PLAN: 1. Acute CHF exacerbation Unclear type patient's last echocardiogram in our system was from 2012 his EF at that time was 60%. Unclear if is been any change. We will need to repeat echo to determine type of CHF Will continue with IV furosemide. Patient received 20 mg in the emergency room we will give an additional 20 to get a total 40 this morning and then to 40 mg twice daily. 2. Hypoxemia Patient was not in any obvious distress would evaluate in the emergency room which cut them off guard being that his pulse ox with good waveforms was around 83%. The may be a component of some chronic issues contributed to this where the patient may be adapted to being hypoxic Wean oxygen as tolerated keep sats greater than or equal to 90% 3. Hyperglycemia Sliding scale insulin 4. Debility and falls Patient is wheelchair-bound and uses a walker to get up and ambulate to the restroom Overall poor performance status PT OT evaluate and treat 5. VTE prophylaxis with enoxaparin 6. CODE STATUS: Addressed with patient. Patient wished to be full code. Charges/Coding Visit Charges Inpatient E&M: 57297 Init Hosp L2
--- NOTE | 2021-05-26 08:12 | ECHOD_ITS ---
Reason For Study: CHF Procedure This was a 2D Doppler, Color Flow transthoracic echocardiogram. Exam performed portable in patient room. Left Ventricle Normal LV size. Left ventricular systolic function is normal. The estimated ejection fraction is 65 %. Stage 1 diastolic dysfunction. No regional wall motion abnormalities noted. Right Ventricle Normal RV size. Normal systolic function. Atria Normal left atrium. Normal right atrium. Mitral Valve Normal mitral valve. Tricuspid Valve Normal tricuspid valve. Mild (1+) tricuspid valve insufficiency. Pulmonary artery systolic pressure is 34 mmHg. Pulmonic Valve The pulmonic valve is not well visualized. Great Vessels Normal aortic root. The pulmonary is not well visualized. Normal inferior vena cava. Pericardium/Pleural No pericardial effusion. MMode/2D Measurements & Calculations LVIDd: 4.7 cm IVSd: 1.1 cm Ao root diam: 3.3 cm LVIDs: 3.2 cm LVPWd: 1.2 cm RVDd: 3.6 cm FS: 32.3 % LAV(MOD-bp): 50.8 ml LA A4 area: 18.5 cm2 LA dimension(2D): 4.5 cm LAV(MOD-bp) Indexed: 24.0 ml/m2 LAV(MOD-sp2): 47.8 ml LAV(MOD-sp4): 52.7 ml Time Measurements MV dec time: 0.19 sec Doppler Measurements & Calculations MV E max etienne: 100.5 cm/sec Lat Peak E' Etienne: 9.2 cm/sec Med Peak E' Etienne: 8.6 cm/sec MV A max etienne: 165.2 cm/sec E/E' lat: 10.9 E/E' med: 11.7 MV E/A: 0.61 Ao V2 max: 170.1 cm/sec LV V1 max: 115.8 cm/sec PA V2 max: 96.8 cm/sec Ao max P.6 mmHg LV V1 max P.4 mmHg TR max etienne: 272.3 cm/sec TR max P.7 mmHg ECHO/Echo Complete Interpretation Summary Normal LV size. Left ventricular systolic function is normal. The estimated ejection fraction is 65 %. Stage 1 diastolic dysfunction. Pulmonary artery systolic pressure is 34 mmHg. Ordering Physician: Peter Gann Referring Physician: Jonathan Arredondo Performed By: Clare Julio, DESMOND, RVT
[2021-05-26 09:10] LABS: Troponin-I HS 10 pg/mL (3.0-78.0)
[2021-05-26 09:23] LABS: Troponin-I HS 11 pg/mL (3.0-78.0)
[2021-05-26] MEDS: Enoxaparin 40 MG/0.4 ML Syringe SC (09:54)
[2021-05-26] MEDS: Multivitamins,Ther W-Minerals Tablet 1 TABLET PO (09:54)
[2021-05-26] MEDS: Levothyroxine 137 MCG Tablet PO (09:54)
[2021-05-26 11:35] LABS: Bedside Glucose 122 mg/dL (74-106)
[2021-05-26] MEDS: Calcium Carbonate 500 MG Tablet 2000 MG PO (12:39)
[2021-05-26 13:19] LABS: Troponin-I HS 11 pg/mL (3.0-78.0)
[2021-05-26] MEDS: Insulin Lispro 100 UNIT/ML INSULN.PEN SC (16:26)
[2021-05-26] MEDS: 0.9% Saline Lock 10 ML Syringe IV (17:08)
[2021-05-26] MEDS: Furosemide 40 MG/4 ML Vial IV (17:08)
[2021-05-26 17:16] LABS: Bedside Glucose 154 mg/dL (74-106)
[2021-05-26] MEDS: Aspirin 81 MG TAB.CHEW PO (21:34)
[2021-05-26] MEDS: amLODIPine 10 MG Tablet PO (21:34)
[2021-05-26] MEDS: Atorvastatin Calcium 20 MG Tablet PO (21:34)
[2021-05-26 22:01] LABS: Bedside Glucose 128 mg/dL (74-106)
[2021-05-27] VITALS (8 sets, daily range): BP systolic 127–139; BP diastolic 59–82; PULSE 85–98; RESP 15–18; TEMP 36.8–37.1; O2SAT 86–97
[2021-05-27] MEDS: Levothyroxine 137 MCG Tablet PO (06:17)
[2021-05-27 06:36] LABS: Bedside Glucose 126 mg/dL (74-106)
[2021-05-27 07:40] LABS: Anion Gap 4 (5-15); BUN 21 mg/dL (7-18); BUN/Creat Ratio 19.3 RATIO (10-20); Calcium,Total 8.5 mg/dL (8.5-10.1); Chloride 102 mmol/L (98-107); Cholesterol 115 mg/dL (200); Creatinine, Serum 1.09 mg/dL (0.70-1.30); EST Glomerular Filtration Rate 69 mL/min (>60); Est Glom Filt Rate - Afr Amer 84 mL/min (>60); Estimated Creatinine Clearance 47.96 ml/min; Glucose 116 mg/dL (74-106); High Density Lipoprotein 53 mg/dL; Potassium 3.3 mmol/L (3.5-5.1); Sodium Level 139 mmol/L (136-145); Thyroid Stim Hormone (TSH) 0.64 uIU/mL (0.358-3.74); Triglycerides 108 mg/dL; Very Low Density Lipoprotein 22 mg/dL (5-40)
[2021-05-27] MEDS: Multivitamins,Ther W-Minerals Tablet 1 TABLET PO (08:08)
[2021-05-27] MEDS: Enoxaparin 40 MG/0.4 ML Syringe SC (09:19)
[2021-05-27] MEDS: Potassium Chloride Oral Tablet 20 MEQ 40 MEQ PO (09:19)
[2021-05-27] MEDS: 0.9% Saline Lock 10 ML Syringe IV (09:19)
[2021-05-27] MEDS: Furosemide 40 MG/4 ML Vial IV (09:20)
[2021-05-27 11:11] LABS: Bedside Glucose 133 mg/dL (74-106)
[2021-05-27] MEDS: Calcium Carbonate 500 MG Tablet 2000 MG PO (11:18)
--- NOTE | 2021-05-27 11:40 | CASEMGMT ---
FANTASMA HAWK assessment: Face to Face with patient/ for initial transition planning/care coordination assessment. FANTASMA HAWK introduced self and role at [facility], pt's voices understanding and consents to assessment. Pt is sitting up in bed in no distress on room air. Pt's answers all questions for pt at this time. Care providers, pharmacy, and demographics verified. Presentation: S/P fall, c/o neck/back/left hip pain Admitting dx: CHF PCP: Maria Elena Specialists: CHECO Toro; amanda Jara Preferred Pharmacy: [facility] Insurance: [facility] Prescription Benefit: [facility] Living Will/HPOA: Pt's is unsure whether pt has LW/HPOA. LNOK: Suhagina Calderon, Living Arrangements: Pt lives with in 1 story home with ramp entrance and assists pt with all ADL's. Pt is w/c bound but does take a few steps and assist with transfers. Transportation: Pt's drives and states no transportation concerns. DME/HHC: Pt has the following DME: w/c, walk in shower w/ bench, and walker. states no need for any further DME. states pt has no hx of HHC or SNF. states no concerns with pt going home at time of discharge. Pt is retired. Pt does not smoke cigarettes or drink ETOH. states no further concerns/needs. CM to follow for any home oxygen need and any further discharge planning/needs. Advised pt to ask for CM if any further questions/concerns/needs arise, voices understanding. Pt Goal: Home Plan: Home w/ 's support Rex MEEK CM
--- NOTE | 2021-05-27 12:42 | PCM.DC ---
Discharge Instructions Diet Discharge Diet: No restrictions Activity Discharge Activity: Return to Normal Activity Weight Bearing Status: Weight bearing as tolerated Dressing / Incision Call your doctor if you observe: Fever of 101 or Higher, Numbness or Tingling, Shortness of breath, Dizziness, Chest pain, Increased palpitations (irregular heartbeat) and Calf discomfort Follow Up Care Please Follow Up With: Primary care provider When: Within the next two weeks. Test Results: Test results from this visit will be discussed in further detail at your follow-up appointment, if applicable. Discharge Plan Admission Admit Date/Time: 05/26/21 07:14 Primary Reason for Your Visit: Fall Attending Provider: Sascha Obrien Primary Care Provider: Jonathan Arredondo Instructions Additional Instructions / Restrictions: * Your dose of Losartan/Hydrochlorothiazide has been discontinued. * A new prescription of Losartan only has been initiated. * A new diuretic (Lasix or Furosemide) has been started to try and address your leg swelling. * If your leg swelling gets worse from your stay in the hospital, contact your primary care provider and possibly obtain a cardiology consultation for diastolic heart failure. Discharge Orders/Prescriptions Prescriptions: New losartan 100 mg tablet 100 mg PO DAILY Qty: 30 RF: 0 furosemide [Lasix] 20 mg tablet 20 mg PO DAILY Qty: 30 RF: 0 Continued cod liver oil 1 EACH capsule 1 ea PO DAILY RF: 0 calcium carbonate 500 MG tablet 2,000 mg PO DAILY@0800 RF: 0 Centrum Silver 1 EACH tablet 1 ea PO DAILY RF: 0 aspirin 81 MG tablet,chewable 81 mg PO QHS RF: 0 levothyroxine 137 MCG tablet 137 mcg PO DAILY RF: 0 atorvastatin 20 MG tablet 20 mg PO QHS RF: 0 amlodipine 10 MG tablet 10 mg PO QHS RF: 0 Discontinued losartan-hydrochlorothiazide 1 EACH tablet 1 each PO DAILY RF: 0 Referrals / Follow Up: Jonathan Arredondo DO [Primary Care Provider] - See Referral Note (Proceed with your primary care provider appointment in June. If your leg swelling gets worse from your stay in the hospital, see your family doctor sooner. ) Disposition Disposition (needs filled in before D/C Order can be placed): Home, Self Care
--- NOTE | 2021-05-27 13:17 | CASEMGMT ---
Pt qualifies for 2L w/ exertion home oxygen and states no preference for DME company after provided list of local in-network. [place] [facility] need for any further therapy, HHC or OP, at this time. Call to [facility] [place] of [place], voices understanding. Rex MEEK CM
--- NOTE | 2021-05-27 14:35 | DS.PCM_ITS ---
Documented by User: Jose F RIVERA 05/27/21 14:44 Providers Date of Admission: 05/26/21 Date of Discharge: 05/27/21 Primary Care Physician: Dr. Jonathan Arredondo DO Reason For Visit: CHF Diagnosis Discharge Diagnosis (1) CHF exacerbation: Status: Chronic Code(s): I50.9 - Heart failure, unspecified Qualifiers: Heart failure type: unspecified Qualified Code(s): I50.9 - Heart failure, unspecified (2) Hypoxemia: Status: Acute Code(s): R09.02 - Hypoxemia (3) Diastolic heart failure: Status: Acute Code(s): I50.30 - Unspecified diastolic (congestive) heart failure Medications at Discharge Home Medications amlodipine 10 mg PO QHS 12/10/15 atorvastatin 20 mg PO QHS 12/10/15 levothyroxine 137 mcg PO DAILY 12/10/15 Centrum Silver 1 ea PO DAILY 03/28/16 calcium carbonate 2,000 mg PO DAILY@0800 03/28/16 cod liver oil 1 ea PO DAILY 03/28/16 aspirin 81 mg PO QHS 09/01/16 furosemide [Lasix] 20 mg PO DAILY #30 tab 05/27/21 losartan 100 mg PO DAILY #30 tab 05/27/21 Hospital Course Procedures 2-D Echocardiogram and Transthoracic echo Summary of Care Provided Minutes Spent on Discharge: 20 Hospital Course: Patient is an 81-year-old male who was admitted to [facility] on 05/26/2021 for evaluation and management of fall with hypoxia. Patient's hypoxia and lower extremity swelling improved with diuresis and patient was weaned down to room air on rest. Hypoxia was determined to be the result of diastolic heart failure which was revealed on echocardiogram, results as above. Patient previously not known to have CHF history, although on losartan. Will initiate Lasix and have patient follow-up with primary care provider for following diastolic heart failure care. PT/OT assess patient for debility and falls and was determined to need no additional therapy. Patient did qualify for home O2 as oxygen saturation were below 90% with ambulation. Oxygen prescription provided. Patient seen by Jose F Ospina PA-C, under the supervision of Dr. Obrien. Physical Exam Narrative Patient is an 81-year-old male comfortably resting in bed, alert and orient x3. Denies development of any new symptoms overnight. Does not appear in acute distress. Const alert, oriented x3 and no apparent distress HEENT normocephalic, head/scalp atraumatic and hearing grossly normal bilaterally Eyes PERRL and conjunctivae normal Neck no lymphadenopathy, supple and no JVD Resp normal respiratory effort, no retractions and no use of accessory muscles Cardio regular rate, regular rhythm and no JVD GI normal to inspection, nondistended, normoactive bowel sounds Extremity normal to inspection, full ROM and no clubbing, cyanosis or edema Skin no rashes or lesions noted Neuro CN's II-XII intact bilaterally Psych affect normal Weight / BMI Weight Weight: 220 lb 10.923 oz Body Mass Index (BMI) 35.4 ABG / Lab / Microbiology Data Result Diagrams: 05/26/21 06:40 05/27/21 06:49 Laboratory: Laboratory Results - last 24 hr 05/26/21 16:19: POC Glucose 154 H 05/26/21 21:55: POC Glucose 128 H 05/27/21 06:27: POC Glucose 126 H 05/27/21 06:49: Sodium 139, Potassium 3.3 L, Chloride 102, Carbon Dioxide 33.0 H , Anion Gap 4 L, BUN 21 H, Creatinine 1.09, Estim Creat Clear Calc 47.96, Est GFR (MDRD) Af Amer 84, Est GFR (MDRD) Non-Af 69, BUN/Creatinine Ratio 19.3, Gluc ose 116 H, Calcium 8.5, Triglycerides 108, Cholesterol 115, LDL Cholesterol 40, VLDL Cholesterol 22, HDL Cholesterol 53, TSH 0.64 05/27/21 11:06: POC Glucose 133 H Radiography Diagnostic Testing: Radiology Impression Echocardiogram 05/26/21 08:12 Interpretation Summary Normal LV size. Left ventricular systolic function is normal. The estimated ejection fraction is 65 %. Stage 1 diastolic dysfunction. Pulmonary artery systolic pressure is 34 mmHg. Ordering Physician: Peter Gann Referring Physician: Jonathan Arredondo Performed By: Clare Julio, DESMOND, RVT D/C Instructions Discharge Diet: No restrictions Weight Bearing Status: Weight bearing as tolerated Call your doctor if you observe: Fever of 101 or Higher, Numbness or Tingling, Shortness of breath, Dizziness, Chest pain, Increased palpitations (irregular heartbeat) and Calf discomfort Please Follow Up With: Primary care provider When: Within the next two weeks. Meaningful Use Info Meaningful Use Diagnoses (Choose all that apply): CHF CHF SHIREEN/ARB ordered at discharge?: Yes Documented LVEF (%): 60 Discharge Plan Admission Admit Date/Time: 05/26/21 07:14 Primary Reason for Your Visit: Fall Attending Provider: Sascha Obrien Primary Care Provider: Jonathan Arredondo Instructions Additional Instructions / Restrictions: * Your dose of Losartan/Hydrochlorothiazide has been discontinued. * A new prescription of Losartan only has been initiated. * A new diuretic (Lasix or Furosemide) has been started to try and address your leg swelling. * If your leg swelling gets worse from your stay in the hospital, contact your primary care provider and possibly obtain a cardiology consultation for diastolic heart failure. Discharge Orders/Prescriptions Prescriptions: New losartan 100 mg tablet 100 mg PO DAILY Qty: 30 RF: 0 furosemide [Lasix] 20 mg tablet 20 mg PO DAILY Qty: 30 RF: 0 Continued cod liver oil 1 EACH capsule 1 ea PO DAILY RF: 0 calcium carbonate 500 MG tablet 2,000 mg PO DAILY@0800 RF: 0 Centrum Silver 1 EACH tablet 1 ea PO DAILY RF: 0 aspirin 81 MG tablet,chewable 81 mg PO QHS RF: 0 levothyroxine 137 MCG tablet 137 mcg PO DAILY RF: 0 atorvastatin 20 MG tablet 20 mg PO QHS RF: 0 amlodipine 10 MG tablet 10 mg PO QHS RF: 0 Discontinued losartan-hydrochlorothiazide 1 EACH tablet 1 each PO DAILY RF: 0 Referrals / Follow Up: Jonathan Arredondo DO [Primary Care Provider] - See Referral Note (Proceed with your primary care provider appointment in June. If your leg swelling gets worse from your stay in the hospital, see your family doctor sooner. ) Disposition Disposition (needs filled in before D/C Order can be placed): Home, Self Care Documented by User: Dr. Sascha Obrien MD 05/27/21 15:02 Providers Date of Admission: 05/26/21 Reason For Visit: CHF Medications at Discharge Home Medications amlodipine 10 mg PO QHS 12/10/15 atorvastatin 20 mg PO QHS 12/10/15 levothyroxine 137 mcg PO DAILY 12/10/15 Centrum Silver 1 ea PO DAILY 03/28/16 calcium carbonate 2,000 mg PO DAILY@0800 03/28/16 cod liver oil 1 ea PO DAILY 03/28/16 aspirin 81 mg PO QHS 09/01/16 furosemide [Lasix] 20 mg PO DAILY #30 tab 05/27/21 losartan 100 mg PO DAILY #30 tab 05/27/21 Hospital Course Procedures 2-D Echocardiogram Summary of Care Provided Minutes Spent on Discharge: 35 Hospital Course: This patient was seen in conjunction with Jose F Ospina PA-C. I have independently interviewed and examined the patient and reviewed pertinent historical, laboratory, and other data. Please refer to Jose F Ospina PA-C's note for details of this patient's presentation, findings, and recommendations. I have reviewed Jose F Ospina PA-C's note and concur with documented findings. In brief, patient 81-year-old gentleman admitted with progressive shortness of breath and assessment of acute congestive heart failure made admitted to a [facility] bed for subsequent management Physical Examination: GENERAL: cooperative HEENT: Atraumatic; EYES; Anicteric, Normal Conjunctiva NECK; supple, normal thyroid, RESPIRATORY: Diminished to auscultation CARDIOVASCULAR: Regular S1 S2, NEURO: Awake; no lateralizing signs. SKIN: No Rash PSYCH; Flat affect Assessment: 1. Acute congestive heart failure with preserved ejection fraction 2. Dyslipidemia 3. Essential hypertension 4. Hypothyroidism 5. DVT prophylaxis 6. Class II obesity with BMI of 35.6 Hospital course; as documented above Total time spent by myself and the advanced practice practitioner evaluating patient, reviewing labs, subsequent management decisions, discussion with patient as well as other providers 35 minutes ( 20 of which was spent by myself) ABG / Lab / Microbiology Data Result Diagrams: 05/26/21 06:40 05/27/21 06:49 Discharge Plan Admission Admit Date/Time: 05/26/21 07:14 Primary Reason for Your Visit: Fall Attending Provider: Sascha Obrien Primary Care Provider: Jonathan Arredondo Instructions Additional Instructions / Restrictions: * Your dose of Losartan/Hydrochlorothiazide has been discontinued. * A new prescription of Losartan only has been initiated. * A new diuretic (Lasix or Furosemide) has been started to try and address your leg swelling. * If your leg swelling gets worse from your stay in the hospital, contact your primary care provider and possibly obtain a cardiology consultation for diastolic heart failure. Discharge Orders/Prescriptions Prescriptions: New losartan 100 mg tablet 100 mg PO DAILY Qty: 30 RF: 0 furosemide [Lasix] 20 mg tablet 20 mg PO DAILY Qty: 30 RF: 0 Continued cod liver oil 1 EACH capsule 1 ea PO DAILY RF: 0 calcium carbonate 500 MG tablet 2,000 mg PO DAILY@0800 RF: 0 Centrum Silver 1 EACH tablet 1 ea PO DAILY RF: 0 aspirin 81 MG tablet,chewable 81 mg PO QHS RF: 0 levothyroxine 137 MCG tablet 137 mcg PO DAILY RF: 0 atorvastatin 20 MG tablet 20 mg PO QHS RF: 0 amlodipine 10 MG tablet 10 mg PO QHS RF: 0 Discontinued losartan-hydrochlorothiazide 1 EACH tablet 1 each PO DAILY RF: 0 Referrals / Follow Up: Jonathan Arredondo DO [Primary Care Provider] - See Referral Note (Proceed with your primary care provider appointment in June. If your leg swelling gets worse from your stay in the hospital, see your family doctor sooner. ) Disposition Disposition (needs filled in before D/C Order can be placed): Home, Self Care Charges/Coding Visit Charges Inpatient E&M: 65776 Disch Hosp Hospital Course Procedures Procedures: 2-D Echocardiogram
== END 2021-05-27 16:34 | disposition home or self-care (01) | DRG 291 ==
LOC: ED 07:12 → PCU 07:25
PROVIDERS: Emergency Provider Emergency Medicine; PCP Preventive Medicine Occupational Medicine; Visit Provider Internal Medicine
DX: I11.0 Hypertensive heart disease with heart failure (principal); I50.31 Acute diastolic (congestive) heart failure; S09.90XA Unspecified injury of head, initial encounter; S20.229A Contusion of unspecified back wall of thorax, initial encounter; W01.0XXA Fall on same level from slipping, tripping and stumbling without subsequent striking against object, initial encounter; S70.02XA Contusion of left hip, initial encounter; E78.5 Hyperlipidemia, unspecified; E03.9 Hypothyroidism, unspecified; R73.9 Hyperglycemia, unspecified; R09.02 Hypoxemia; Z87.891 Personal history of nicotine dependence; Z99.3 Dependence on wheelchair; E66.9 Obesity, unspecified; Z68.35 Body mass index [BMI] 35.0-35.9, adult
CPT/HCPCS: 36415; 70450; 71045; 72070; 72100; 72125; 73502; 80048; 80061; 82962; 83880; 84443; 84484; 85025; 93306; 97162; 97166; 99285; A4216; J1940

== ENCOUNTER 2021-12-15 08:42 | Emergency (ER) | payer MEDICARE, SELFPAY ==
[2021-12-15 08:44] VITALS: BP 191/79; PULSE 101; RESP 17; TEMP 36.4; O2SAT 97; BMI 35.1
--- NOTE | 2021-12-15 09:02 | EX.ED.GUMALE ---
HPI History of Present Illness Chief Complaint: Complaint Detail of Chief Complaint: Inability urinate Informant: patient Pain Onset: Today Narrative Narrative: Patient presents the emergency department with complaint of inability to urinate this morning. Patient states that he last urinated last night. He denies any abdominal pain. He denies dysuria or urgency or frequency. He denies hematuria. He is not had this issue before. He denies recent illness. Patient has a history of prior stroke and does have some dysarthria. Patient does not ambulate. [facility] Medical History Arthritis Hypertension Spinal stenosis Stroke/cerebrovascular accident Home Medications amlodipine 10 mg tablet 10 mg PO QHS Heart 12/10/15 [History Last Taken 05/25/21 22:00] atorvastatin 20 mg tablet 20 mg PO QHS Cholesterol 12/10/15 [History Last Taken 05/25/21 22:00] levothyroxine 137 mcg tablet 137 mcg PO DAILY Thyroid 12/10/15 [History Last Taken 05/25/21 06:00] calcium carbonate 200 mg calcium (500 mg) chewable tablet 2,000 mg PO DAILY@0800 GERD 03/28/16 [History Last Taken 05/25/21 15:00] cod liver oil 1 ea PO DAILY Supplement 03/28/16 [History Last Taken 05/25/21 15:00] iwswpsua-xnw-vwntm acid 0.4 mg-lycopene 300 mcg-lutein 250 mcg tablet (Centrum Silver) 1 ea PO DAILY Vitamin 03/28/16 [History Last Taken 05/25/21 15:00] aspirin 81 mg chewable tablet 81 mg PO QHS Heart 09/01/16 [History Last Taken 05/25/21 22:00] losartan 100 mg tablet 100 mg PO DAILY #30 tabs 05/27/21 [Rx Last Taken Unknown] furosemide 20 mg tablet (Lasix) 20 mg PO DAILY PRN Edema 12/15/21 [History Last Taken Unknown] Allergy/AdvReac Type Severity Reaction Status Date / Time guaifenesin [From Entex LA] Allergy Unknown Verified 12/15/21 08:43 phenylephrine [From Entex LA] Allergy Unknown Verified 12/15/21 08:43 phenylpropanolamine Allergy Unknown Verified 12/15/21 08:43 [From Entex LA] Social History Smoking Status: Former smoker ROS ROS ED Review of Systems ROS Unobtainable: other Constitutional Constitutional ED: Reports lethargy; Denies chills, fever(s), sweats or weight loss Eyes Eyes: Denies blurry vision, change in vision or diplopia ENT ENT ED: Denies rhinorrhea or sore throat Cardiovascular Cardiovascular: Reports chest pain and racing heartbeat; Denies orthopnea Respiratory/Chest Respiratory/Chest: Reports dyspnea and dyspnea on exertion; Denies cough, orthopnea or sputum Gastrointestinal Gastrointestinal: Denies abdominal pain, diarrhea, nausea or vomiting Genitourinary Genitourinary ED: Reports other Details: Urinary retention ; Denies dysuria, hematuria or urinary frequency Musculoskeletal Musculoskeletal: Denies arthralgias, back pain, myalgias or neck pain Integumentary Denies abscess, Abrasions or rash Neurologic Neurologic: Denies headache(s) or weakness Psychiatric Psychiatric: Denies anxiety, depression or suicidal thoughts Endocrine Endocrinology: Denies polydipsia, polyphagia or polyuria Hematologic/Lymphatic Hematologic/Lymphatic: Denies easy bleeding, easy bruising or lymphadenopathy Allergic/Immunologic Allergic/Immunologic ED: Denies mouth swelling, tongue swelling or urticaria EXAM Physical Exam Const Vital Signs: 12/15/21 08:44 Temperature 97.5 F L Temperature Source Oral Pulse Rate 101 H Respiratory Rate 17 Blood Pressure 191/79 H Blood Pressure Mean 116 Pulse Ox 97 Oxygen Delivery Method Room Air Positive well nourished and well developed General Appearance ED: well developed and NAD HEENT Reports TM's clear and moist mucous membranes normocephalic and atraumatic; Negative for trauma or tenderness Tympanic Membrane ED: Yes TM's clear Eyes PERRL and EOMs intact bilaterally General Eye ED: Negative for pale conjunctiva or scleral icterus Neck no lymphadenopathy, supple and no JVD General: Negative for tenderness Chest Wall inspection of chest normal and palpation of chest normal Chest: Negative for tenderness Resp normal respiratory effort and clear to auscultation bilaterally Effort and Inspection: Negative for respiratory distress or pain with movement Auscultation: Negative for rhonchi, wheezes or diminished lung sounds Cardio regular rate, regular rhythm, S1 normal heart sound, S2 normal heart sound and no murmurs Peripheral Pulses: pulses 2+ throughout GI normal to inspection, nondistended, normoactive bowel sounds, soft to palpation, non-tender, non-distended and no masses Back/Spine no CVA tenderness and no thoracic nor lumbar tenderness Extremity normal to inspection General Extremety ED: Negative for edema General Extremity: Negative for edema Neuro oriented x3, CN's II-XII intact bilaterally, no sensory deficits noted and gait normal Neuro Narrative: Patient has dysarthria. Sensorium / Orientation: awake, alert, oriented to person, oriented to place and oriented to time Motor Exam: strength 5/5 throughout and strength abnormal Psych mental status grossly normal Skin no rashes or lesions noted and no wounds MDM MDM MDM Narrative Medical decision making narrative: Patient had a bladder scan performed on arrival and he had 100 cc of urine in the bladder. I did have patient straight cath and the amount of urine was consistent with bladder scan. Urinalysis was unremarkable. Kidney function was normal. He had a normal white count. H&H was normal. At this point he is without complaint. He will be discharged to home. Lab Data Attestation: I reviewed the patient's lab results. Labs: Laboratory Results - last 24 hr 12/15/21 12/15/21 12/15/21 09:12 09:12 09:19 WBC 9.8 RBC 4.93 Hgb 14.2 Hct 43.3 MCV 87.8 MCH 28.8 MCHC 32.8 RDW Std Deviation 43.4 RDW Coeff of Nicky 13.5 Plt Count 274 MPV 9.0 Immature Gran % (Auto) 0.700 Neut % (Auto) 57.4 Lymph % (Auto) 32.0 [place] % (Auto) 7.6 Eos % (Auto) 1.7 Baso % (Auto) 0.6 Absolute Neuts (auto) 5.6 Absolute Lymphs (auto) 3.13 Nucleated RBC % 0 Sodium 144 Potassium 3.7 Chloride 106 Carbon Dioxide 30.0 Anion Gap 8 BUN 20 H Creatinine 1.04 Estim Creat Clear Calc 50.27 Est GFR (MDRD) Af Amer 88 Est GFR (MDRD) Non-Af 73 BUN/Creatinine Ratio 19.2 Glucose 114 H Calcium 9.2 Urine Color Yellow Urine Clarity Clear Urine pH 6.5 Ur Specific [place] 1.020 Urine Protein Negative Urine Glucose (UA) Normal Urine Ketones Negative Urine Occult Blood Negative Urine Nitrite Negative Urine Bilirubin Negative Urine Urobilinogen Normal Ur Leukocyte Esterase Negative Urine RBC 0 SEEN Urine WBC 0 SEEN Ur Squamous Epith Cells 0 SEEN Urine Bacteria 0 SEEN Urine Mucus 0 SEEN Discharge Plan Triage Chief Complaint: Complaint ED Provider: Denice Savage Dx/Rx/DC Orders Clinical Impression: Difficulty urinating Instructions: ED Urinary Retention, Male Prescriptions: No Action cod liver oil 1 EACH capsule 1 ea PO DAILY calcium carbonate 500 MG tablet 2,000 mg PO DAILY@0800 Centrum Silver 1 EACH tablet 1 ea PO DAILY aspirin 81 MG tablet,chewable 81 mg PO QHS losartan 100 mg tablet 100 mg PO DAILY Qty: 30 0RF furosemide [Lasix] 20 mg tablet 20 mg PO DAILY PRN (Reason: Edema) levothyroxine 137 MCG tablet 137 mcg PO DAILY atorvastatin 20 MG tablet 20 mg PO QHS amlodipine 10 MG tablet 10 mg PO QHS Primary Care Provider: Jonathan Arredondo Referrals: Jonathan Arredondo DO [Primary Care Provider] - 3-5 Days Disposition Disposition: Home, Self Care
[2021-12-15 09:30] LABS: Bacteria 0 SEEN /hpf (None Seen); Mucous, Urine 0 SEEN /hpf (<or=2+); Red Blood Cells-Urine 0 SEEN /hpf (0-5); Squamous Epithelial Cells - UA 0 SEEN /hpf (0-5); White Blood Cells 0 SEEN /hpf (0-5)
[2021-12-15 09:31] LABS: Absolute Lymphocyte Count 3.13 X10^3/uL (0.83-4.51); Absolute Neutrophil Count 5.6 X10^3/uL (2.0-7.7); Basophil# 0.06 X10^3/uL; Basophil% 0.6 % (0-1); Eosinophil# 0.17 X10^3/uL; Eosinophils% 1.7 % (0-5); Hematocrit 43.3 % (40-54); Hemoglobin 14.2 g/dL (13.0-16.5); Lymphocyte # 3.13 X10^3/ul (0.83-4.51); Mean Corp Hgb Conc 32.8 g/dL (32-36); Mean Corpuscular Hgb 28.8 pg (27.0-32.0); Mean Corpuscular Volume 87.8 fL (80-94); Monocyte# 0.74 X10^3/uL; Monocyte% 7.6 % (0-10); NRBC Flagged by Analyzer 0 % (0-5); Neutrophil # 5.61 X10^3/uL (2.7-7.7); Neutrophil % 57.4 % (47-70); Platelet Count 274 K/mm3 (150-450); RBC Distribution Width CV 13.5 % (11.6-14.6); RBC Distribution Width SD 43.4 fl (35.1-43.9); Red Blood Count 4.93 M/mm3 (4.6-6.2); White Blood Count 9.8 K/mm3 (4.4-11.0)
[2021-12-15 09:33] LABS: Color, Urine Yellow (Yellow); Glucose, Dipstick Normal (Normal); Ketone-Dipstick Negative (Negative); Leukocyte Esterase-Dipstick Negative /ul (Negative); Nitrite-Dipstick Negative (Negative); Occult Blood-Urine Negative /ul (Negative); Protein-Dipstick Negative (Negative); Urine Bilirubin Dipstick Negative (Negative); Urine Clarity Clear (Clear); Urine Urobilinogen Normal (Normal); Urine pH 6.5 (5.0 - 8.0)
[2021-12-15] MEDS: 0.9% Normal Saline 1,000 ML 150 ML IV (09:36)
[2021-12-15 09:46] LABS: Anion Gap 8 (5-15); BUN 20 mg/dL (7-18); BUN/Creat Ratio 19.2 RATIO (10-20); Calcium,Total 9.2 mg/dL (8.5-10.1); Chloride 106 mmol/L (98-107); Creatinine, Serum 1.04 mg/dL (0.70-1.30); EST Glomerular Filtration Rate 73 mL/min (>60); Est Glom Filt Rate - Afr Amer 88 mL/min (>60); Estimated Creatinine Clearance 50.27 ml/min; Glucose 114 mg/dL (74-106); Potassium 3.7 mmol/L (3.5-5.1); Sodium Level 144 mmol/L (136-145)
[2021-12-15 11:37] VITALS: BP 160/80; PULSE 86; RESP 16; O2SAT 98
== END 2021-12-15 11:38 | disposition home or self-care (01) ==
PROVIDERS: Emergency Provider Emergency Medicine; PCP Preventive Medicine Occupational Medicine; Visit Provider Emergency Medicine
DX: R39.198 Other difficulties with micturition (principal); I69.322 Dysarthria following cerebral infarction; Z87.891 Personal history of nicotine dependence; I10 Essential (primary) hypertension
CPT/HCPCS: 80048; 81001; 85025; 96360; 96361; 99285

== ENCOUNTER 2022-03-10 18:43 | Emergency (ER) | payer MEDICARE, SELFPAY ==
[2022-03-10 18:44] VITALS: BP 184/75; PULSE 96; RESP 20; TEMP 36.4; O2SAT 95; BMI 35.5
[2022-03-10 18:55] VITALS: PULSE 100; RESP 18; O2SAT 96
[2022-03-10 18:56] VITALS: O2SAT 97
--- NOTE | 2022-03-10 19:19 | CT_ITS ---
STUDY: CT ABDOMEN AND PELVIS WITHOUT CONTRAST REASON FOR EXAM: Male, 81 years old. Pain RADIATION DOSAGE (If Supplied By Facility): CTDIvol = ( 19.31 ) mGy, DLP = ( 1008.51 ) mGycm TECHNIQUE: Transaxial images were obtained from the dome of the diaphragm to the symphysis pubis without oral contrast, and without intravenous contrast. Sagittal and coronal images were reconstructed. Individualized dose optimization techniques were used for this CT. COMPARISON: None. FINDINGS: The visualized lung bases are unremarkable. The visualized portions of the heart are within normal limits. Multiple cysts in the lateral segment left lobe of the liver. There are multiple gallstones. Normal spleen. Normal pancreas. Normal bilateral adrenal glands. Normal right kidney. Normal left kidney. Normal visualized stomach. Normal small intestine. Normal colon. The appendix is visualized and appears normal. There is diffuse atherosclerotic calcification of the abdominal aorta, without a demonstrated aneurysm. Normal inferior vena cava. Normal retroperitoneum. Normal urinary bladder. There is a small umbilical hernia containing fat. Chronic mild wedge compression fracture of L1 without retropulsion into the spinal canal. CT/Abdomen/Pelvis without Cont IMPRESSION: No acute abnormality. Cholelithiasis. Electronically Signed: Asif Lerner MD at 20:11 [facility] ,
--- NOTE | 2022-03-10 19:20 | EX.ED.DYSGE1 ---
HPI History of Present Illness Chief Complaint: Chest Other Narrative Narrative: 81-year-old male presents with left flank and side pain that he has had since Thursday, 3 days ago. His states his pain began then and worsened today. He took Tylenol arthritis for the pain. He denies any other symptoms. No fevers or chills. No nausea or vomiting. No dysuria or hematuria. He denies any problems with bowel movements. Last normal bowel movement was yesterday. No exacerbating or alleviating factors to his left flank pain. Although his chief complaint states chest other, he states he is not having any chest pain. He has history of hemorrhagic stroke and states that his abdomen is always protuberant ever since he has been in a wheelchair because he cannot move. He has chronic left leg swelling. Additionally, he states his left flank hurts even when he laughs. [facility] Medical History Arthritis Back contusion Closed head injury without loss of consciousness Contusion of hip, left Fall from slip, trip, or stumble Hypertension Spinal stenosis Stroke/cerebrovascular accident Home Medications amlodipine 10 mg tablet 10 mg PO QHS Heart 12/10/15 [History Last Taken 05/25/21 22:00] atorvastatin 20 mg tablet 20 mg PO QHS Cholesterol 12/10/15 [History Last Taken 05/25/21 22:00] levothyroxine 137 mcg tablet 137 mcg PO DAILY Thyroid 12/10/15 [History Last Taken 05/25/21 06:00] calcium carbonate 200 mg calcium (500 mg) chewable tablet 2,000 mg PO DAILY@0800 GERD 03/28/16 [History Last Taken 05/25/21 15:00] cod liver oil 1 ea PO DAILY Supplement 03/28/16 [History Last Taken 05/25/21 15:00] kxxemvux-jjl-emgoi acid 0.4 mg-lycopene 300 mcg-lutein 250 mcg tablet (Centrum Silver) 1 ea PO DAILY Vitamin 03/28/16 [History Last Taken 05/25/21 15:00] aspirin 81 mg chewable tablet 81 mg PO QHS Heart 09/01/16 [History Last Taken 05/25/21 22:00] losartan 100 mg tablet 100 mg PO DAILY #30 tabs 05/27/21 [Rx Last Taken Unknown] furosemide 20 mg tablet (Lasix) 20 mg PO DAILY PRN Edema 12/15/21 [History Last Taken Unknown] Allergy/AdvReac Type Severity Reaction Status Date / Time guaifenesin [From Entex LA] Allergy Unknown Verified 03/10/22 18:45 phenylephrine [From Entex LA] Allergy Unknown Verified 03/10/22 18:45 phenylpropanolamine Allergy Unknown Verified 03/10/22 18:45 [From Entex LA] Social History Smoking Status: Former smoker ROS ROS ED ROS Narrative Constitutional: No fever, no chills. HEENT: No sore throat. No neck pain. No loss of vision. No rhinorrhea. Cardiovascular: No chest pain. No palpitations. No pedal edema. Respiratory: No cough, no shortness of breath. Abdominal: Left-sided abdominal pain. No nausea. No vomiting. No diarrhea. Genitourinary: No dysuria. No hematuria. Left flank pain. Musculoskeletal: No myalgias. No arthralgias. Neurologic: No headaches. No dizziness. No lightheadedness. Skin: No rash. No change in color. Psychiatric: No depression. No anxiety. EXAM Physical Exam Narrative Exam Narrative: Afebrile. Vital signs noted. HEENT: Normocephalic. Atraumatic. PERRL, EOMI. Neck soft and supple. No point tenderness or step off. Cardiovascular: Regular rate and rhythm. No murmurs, rubs, or gallops appreciated. Respiratory: No tachypnea. Lungs clear to auscultation bilaterally. Gastrointestinal: Abdomen soft, mild tenderness left flank, with normoactive bowel sounds. No rebound or guarding. Neurological: Awake. Alert. Nonfocal, nonlateralizing. Skin: No rash. Normal color. No pallor. Musculoskeletal: No pedal edema. Full range of motion extremities. Const Vital Signs: 03/10/22 18:44 03/10/22 18:55 03/10/22 18:56 Temperature 97.6 F L Temperature Source Temporal Pulse Rate 96 100 Respiratory Rate 20 H 18 Respiratory Effort Short of Breath Labored Respiratory Pattern Normal Blood Pressure 184/75 H Blood Pressure Mean 111 Pulse Ox 95 96 Oxygen Delivery Method Room Air Room Air Room Air Oxygen Flow Rate (L/min) 03/10/22 21:41 03/10/22 21:48 03/10/22 21:49 Temperature Temperature Source Pulse Rate 93 Respiratory Rate 17 Respiratory Effort Respiratory Pattern Blood Pressure 159/71 H Blood Pressure Mean 100 Pulse Ox 91 83 96 Oxygen Delivery Method Room Air Room Air Nasal Cannula Oxygen Flow Rate (L/min) 3 MDM MDM MDM Narrative Medical decision making narrative: Comprehensive work-up was pursued. Patient was administered morphine and ondansetron, and a bolus of normal saline 1 L intravenously. I will obtain CBC, CMP, UA, and CT imaging without contrast to look for ureteral stone. CBC is grossly normal with a normal white count of 9.3, hemoglobin normal at 13.3, hematocrit 40.9. Platelet count normal at 275. Electrolyte panel shows a BUN of 22 with a creatinine normal at 1.29. Glucose appropriately elevated at 109 with a normal anion gap of 6. LFTs are grossly unremarkable. Urinalysis obtained through straight cath shows no evidence of infection. I do not feel antibiotics are indicated. CT of the flank shows no evidence of acute process, no ureterolithiasis. Patient had been given a dose of morphine and is resting comfortably. At this point in time, I do feel that his left flank pain may be more of an abdominal wall pain as the patient states it hurts when he laughs or coughs or essentially moves although his range of motion is limited secondary to his previous intracranial hemorrhage. At this point in time, I feel he can be discharged safely home with follow-up to his primary care provider. Return instructions to the emergency department were reviewed with the patient and his . Disposition is discharged home in stable condition. Lab Data Attestation: I reviewed the patient's lab results. Labs: Laboratory Results - last 24 hr 03/10/22 03/10/22 03/10/22 19:05 19:05 21:35 WBC 9.3 RBC 4.74 Hgb 13.3 Hct 40.9 MCV 86.3 MCH 28.1 MCHC 32.5 RDW Std Deviation 41.0 RDW Coeff of Nicky 13.2 Plt Count 275 MPV 9.5 Immature Gran % (Auto) 0.300 Neut % (Auto) 61.3 Lymph % (Auto) 26.2 [place] % (Auto) 9.9 Eos % (Auto) 1.9 Baso % (Auto) 0.4 Absolute Neuts (auto) 5.7 Absolute Lymphs (auto) 2.43 Nucleated RBC % 0 Sodium 141 Potassium 4.0 Chloride 105 Carbon Dioxide 30.0 Anion Gap 6 BUN 22 H Creatinine 1.29 Estim Creat Clear Calc 40.53 Est GFR (MDRD) Af Amer 69 Est GFR (MDRD) Non-Af 57 L BUN/Creatinine Ratio 17.1 Glucose 109 H Calcium 9.2 Total Bilirubin 0.40 AST 21 ALT 28 Alkaline Phosphatase 91 Total Protein 7.5 Albumin 3.8 Globulin 3.7 Albumin/Globulin Ratio 1.0 Urine Color Yellow Urine Clarity Clear Urine pH 5.0 Ur Specific [place] 1.025 Urine Protein 30 H Urine Glucose (UA) Normal Urine Ketones 5 H Urine Occult Blood Negative Urine Nitrite Negative Urine Bilirubin Negative Urine Urobilinogen 1 H Ur Leukocyte Esterase 25 H Urine RBC 0 SEEN Urine WBC 0-5 SEEN Ur Squamous Epith Cells 0 SEEN Urine Bacteria 0 SEEN Urine Mucus RARE Radiography Diagnostic Testing: Clinical Impression(s) from Imaging Studies Abdomen/Pelvis CT 03/10/22 19:19 IMPRESSION: No acute abnormality. Cholelithiasis. Electronically Signed: Asif Lerner MD at 20:11 EST , Discharge Plan Triage Chief Complaint: Chest Other ED Provider: Amaury Sanchez Dx/Rx/DC Orders Clinical Impression: Left flank pain, Abdominal wall pain in left flank Instructions: ED Flank Pain, Uncertain Cause, ED Pain, Acute, Uncertain Cause Prescriptions: No Action cod liver oil 1 EACH capsule 1 ea PO DAILY calcium carbonate 500 MG tablet 2,000 mg PO DAILY@0800 Centrum Silver 1 EACH tablet 1 ea PO DAILY aspirin 81 MG tablet,chewable 81 mg PO QHS losartan 100 mg tablet 100 mg PO DAILY Qty: 30 0RF furosemide [Lasix] 20 mg tablet 20 mg PO DAILY PRN (Reason: Edema) levothyroxine 137 MCG tablet 137 mcg PO DAILY atorvastatin 20 MG tablet 20 mg PO QHS amlodipine 10 MG tablet 10 mg PO QHS Primary Care Provider: Jonathan rAredondo Referrals: Jonathan Arredondo DO [Primary Care Provider] - 5-7 Days Disposition Disposition: Home, Self Care
[2022-03-10] MEDS: Ondansetron 4 MG/2 ML Vial IV (19:24)
[2022-03-10] MEDS: Morphine 4 MG/ML Syringe IV (19:24)
[2022-03-10] MEDS: 0.9% Normal Saline 1,000 ML 1000 ML IV (19:24)
[2022-03-10 19:34] LABS: Absolute Lymphocyte Count 2.43 X10^3/uL (0.83-4.51); Absolute Neutrophil Count 5.7 X10^3/uL (2.0-7.7); Basophil# 0.04 X10^3/uL; Basophil% 0.4 % (0-1); Eosinophil# 0.18 X10^3/uL; Eosinophils% 1.9 % (0-5); Hematocrit 40.9 % (40-54); Hemoglobin 13.3 g/dL (13.0-16.5); Lymphocyte # 2.43 X10^3/ul (0.83-4.51); Lymphocyte % 26.2 % (19-41); Mean Corp Hgb Conc 32.5 g/dL (32-36); Mean Corpuscular Hgb 28.1 pg (27.0-32.0); Mean Corpuscular Volume 86.3 fL (80-94); Mean Platelet Vol. 9.5 fl (6.2-12.0); Monocyte# 0.92 X10^3/uL; Monocyte% 9.9 % (0-10); NRBC Flagged by Analyzer 0 % (0-5); Neutrophil # 5.66 X10^3/uL (2.7-7.7); Neutrophil % 61.3 % (47-70); Platelet Count 275 K/mm3 (150-450); RBC Distribution Width CV 13.2 % (11.6-14.6); Red Blood Count 4.74 M/mm3 (4.6-6.2); White Blood Count 9.3 K/mm3 (4.4-11.0)
[2022-03-10 19:50] LABS: AST(SGOT) 21 U/L (15-37); Alanine Aminotransfer ALT/SGPT 28 U/L (16-61); Albumin, Serum 3.8 g/dL (3.2-5.0); Alkaline Phosphatase 91 U/L (45-117); Anion Gap 6 (5-15); BUN 22 mg/dL (7-18); BUN/Creat Ratio 17.1 RATIO (10-20); Calcium,Total 9.2 mg/dL (8.5-10.1); Chloride 105 mmol/L (98-107); Creatinine, Serum 1.29 mg/dL (0.70-1.30); EST Glomerular Filtration Rate 57 mL/min (>60); Est Glom Filt Rate - Afr Amer 69 mL/min (>60); Estimated Creatinine Clearance 40.53 ml/min; Globulin 3.7 g/dL (2.2-4.2); Glucose 109 mg/dL (74-106); Protein, Total 7.5 g/dL (6.4-8.2); Sodium Level 141 mmol/L (136-145)
[2022-03-10 21:41] VITALS: BP 159/71; PULSE 93; RESP 17; O2SAT 91
[2022-03-10 21:45] LABS: Bacteria 0 SEEN /hpf (None Seen); Red Blood Cells-Urine 0 SEEN /hpf (0-5); Squamous Epithelial Cells - UA 0 SEEN /hpf (0-5)
[2022-03-10 21:46] LABS: Color, Urine Yellow (Yellow); Glucose, Dipstick Normal (Normal); Ketone-Dipstick 5 mg/dl (Negative); Leukocyte Esterase-Dipstick 25 /ul (Negative); Nitrite-Dipstick Negative (Negative); Occult Blood-Urine Negative /ul (Negative); Protein-Dipstick 30 mg/dl (Negative); Specific Gravity, Urine 1.025 (1.002-1.030); Urine Bilirubin Dipstick Negative (Negative); Urine Clarity Clear (Clear); Urine Urobilinogen 1 mg/dl (Normal)
[2022-03-10 21:48] VITALS: O2SAT 83
[2022-03-10 21:49] VITALS: O2SAT 96
[2022-03-10 21:52] LABS: Mucous, Urine RARE /hpf (<or=2+); White Blood Cells 0-5 SEEN /hpf (0-5)
== END 2022-03-10 22:43 | disposition home or self-care (01) ==
PROVIDERS: Emergency Provider Emergency Medicine; PCP Preventive Medicine Occupational Medicine; Visit Provider Emergency Medicine
DX: R10.9 Unspecified abdominal pain (principal); I10 Essential (primary) hypertension; Z87.891 Personal history of nicotine dependence
CPT/HCPCS: 74176; 80053; 81001; 85025; 96361; 96374; 96375; 99284; J7030; P9612; A4216; J2405

== ENCOUNTER 2022-07-01 21:51 | Emergency (ER) | payer MEDICARE, SELFPAY ==
[2022-07-01 21:52] VITALS: BP 142/67; PULSE 89; RESP 18; TEMP 36.8; O2SAT 97; BMI 33.6
--- NOTE | 2022-07-01 22:04 | EDS_ITS ---
HPI History of Present Illness Chief Complaint: Laceration Detail of Chief Complaint: Scalp laceration due to fall Informant: patient and spouse/S.O. Onset/Context/Timing Onset: Hours Mechanism/Context: Blunt Injury and Fall Location: Right parietal occipital region Current Severity: Mild Maximum Severity: Moderate Worsened by: Initial impact and laceration Relieved by: Nothing Associated Symptoms Associated Symptoms: Positive for Inability to ambulate (Patient not been able to ambulate for some time. He uses a wheelchair to navigate his surroundings); Negative for Parasthesias, Weakness, Loss of function, Loss of consciousness or Amnesia Narrative Narrative: Patient is an 82-year-old male who is in hospice care due to quality of life. He was in the restroom. He fell transferring. He hit his head on the floor. There is no loss conscious. He was not dazed. He is not amnestic. He denies headache. Denies neck pain. He denies new paresthesia, anesthesia or weakness in his upper or lower extremities. He is not on anticoagulant. He denies neck pain. Tetanus Immunization: Unknown Prior similar symptoms: Yes Recent Illness/Hospitalization: No PFSH PFS Medical History Arthritis Back contusion Closed head injury without loss of consciousness Contusion of hip, left Fall from slip, trip, or stumble History of prostate cancer Hypertension Spinal stenosis Stroke/cerebrovascular accident Home Medications amlodipine 10 mg tablet 10 mg PO QHS Heart 12/10/15 [History Last Taken 05/25/21 22:00] atorvastatin 20 mg tablet 20 mg PO QHS Cholesterol 12/10/15 [History Last Taken 05/25/21 22:00] levothyroxine 137 mcg tablet 137 mcg PO DAILY Thyroid 12/10/15 [History Last Taken 05/25/21 06:00] calcium carbonate 200 mg calcium (500 mg) chewable tablet 2,000 mg PO DAILY@0800 GERD 03/28/16 [History Last Taken 05/25/21 15:00] cod liver oil 1 ea PO DAILY Supplement 03/28/16 [History Last Taken 05/25/21 15:00] yptxeith-pvx-acfip acid 0.4 mg-lycopene 300 mcg-lutein 250 mcg tablet (Centrum Silver) 1 ea PO DAILY Vitamin 03/28/16 [History Last Taken 05/25/21 15:00] aspirin 81 mg chewable tablet 81 mg PO QHS Heart 09/01/16 [History Last Taken 05/25/21 22:00] losartan 100 mg tablet 100 mg PO DAILY #30 tabs 05/27/21 [Rx Last Taken Unknown] furosemide 20 mg tablet (Lasix) 20 mg PO DAILY PRN Edema 12/15/21 [History Last Taken Unknown] Allergy/AdvReac Type Severity Reaction Status Date / Time guaifenesin [From Entex LA] Allergy Unknown Verified 03/10/22 18:45 phenylephrine [From Entex LA] Allergy Unknown Verified 03/10/22 18:45 phenylpropanolamine Allergy Unknown Verified 03/10/22 18:45 [From Entex LA] gabapentin AdvReac Severe dizziness Verified 05/12/22 13:29 Surgical History History of arthroscopy of left shoulder History of surgical removal of nipple Hx of bilateral inguinal hernia repair Hx of cataract surgery Hx of eye surgery Hx of prostatectomy Hx of thyroidectomy Hx of vasectomy Social History (Updated 07/01/22 @ 22:[address] Hany Moreno MD) household members: spouse Smoking Status: Former smoker substance use type: does not use ROS ROS ED Musculoskeletal Musculoskeletal: Denies arthralgias, back pain, myalgias or neck pain Integumentary Reports other Details: Scalp laceration Neurologic Neurologic: Denies headache(s) Hematologic/Lymphatic Hematologic/Lymphatic: Denies easy bleeding or easy bruising EXAM Physical Exam Const Vital Signs: 07/01/22 21:52 Temperature 98.3 F Temperature Source Temporal Pulse Rate 89 Respiratory Rate 18 Blood Pressure 142/67 H Blood Pressure Mean 92 Pulse Ox 97 Oxygen Delivery Method Room Air Positive well nourished, well developed and obese; Negative for cachectic or contractures General Appearance ED: well developed and NAD; Negative for cachectic or contractures Nutritional Appearance: obese; Negative for cachectic HEENT HEENT Narrative: Tenderness over the laceration. Laceration is 4 cm length. There is no palpable depression. There is no clinical findings of basilar skull fracture. trauma and tenderness Eyes PERRL and EOMs intact bilaterally Neck full ROM Chest Wall inspection of chest normal and palpation of chest normal Resp normal respiratory effort and clear to auscultation bilaterally Cardio regular rhythm, S1 normal heart sound, S2 normal heart sound and no murmurs Rate: regular rate Back/Spine normal to inspection Extremity Negative for normal to inspection Neuro oriented x3 and CN's II-XII intact bilaterally [place] Coma Scale: document GCS findings Spontaneous Obeys Commands Oriented 15 Psych mental status grossly normal and thought process normal Skin Wounds: wounds noted PROC Procedures Other Procedures Procedure(s): Laceration 4.0 cm in length: Patient was prepped draped sterile manner. Wound was cleansed. Wound was anesthetized using let. A total of 7 lidia were placed with good cosmesis and hemostasis. MDM MDM MDM Narrative Medical decision making narrative: Since patient is hospice on no anticoagulant and only a baby aspirin imaging is not required. Will anesthetize wound with let and staple laceration. Discharge Plan Triage Chief Complaint: Laceration ED Provider: Hany Moreno Dx/Rx/DC Orders Clinical Impression: Laceration of scalp, Benign essential hypertension, Diastolic heart failure, Injury due to fall, Hospice care Instructions: ED Laceration Scalp Stitches or [place] Prescriptions: No Action cod liver oil 1 EACH capsule 1 ea PO DAILY calcium carbonate 500 MG tablet 2,000 mg PO DAILY@0800 Centrum Silver 1 EACH tablet 1 ea PO DAILY aspirin 81 MG tablet,chewable 81 mg PO QHS losartan 100 mg tablet 100 mg PO DAILY Qty: 30 0RF furosemide [Lasix] 20 mg tablet 20 mg PO DAILY PRN (Reason: Edema) levothyroxine 137 MCG tablet 137 mcg PO DAILY atorvastatin 20 MG tablet 20 mg PO QHS amlodipine 10 MG tablet 10 mg PO QHS Primary Care Provider: Jonathan Arredondo Referrals: Jonathan Arredondo DO [Primary Care Provider] - 10 Day for suture removal Disposition Disposition: Home, Self Care
[2022-07-01] MEDS: Lidocaine/Epi/Tetracaine 50 ML 1 APPLIC TOPICAL (22:47)
[2022-07-01] MEDS: Diphth,Pertuss(Acell),Tet Vac 0.5 ML Vial IM (22:53)
== END 2022-07-01 23:06 | disposition home or self-care (01) ==
PROVIDERS: Emergency Provider Emergency Medicine; PCP Preventive Medicine Occupational Medicine; Visit Provider Emergency Medicine
DX: S01.01XA Laceration without foreign body of scalp, initial encounter (principal); I11.0 Hypertensive heart disease with heart failure; I50.30 Unspecified diastolic (congestive) heart failure; W19.XXXA Unspecified fall, initial encounter; Z87.891 Personal history of nicotine dependence; E66.9 Obesity, unspecified; Z23 Encounter for immunization
CPT/HCPCS: 12002; 90471; 99285

== ENCOUNTER → 2022-08-14 | Outpatient (CLI) | payer MEDICARE, SELFPAY ==
[2022-08-14 14:59] LABS: Anion Gap 5 (5-15); BUN 19 mg/dL (7-18); BUN/Creat Ratio 17.4 RATIO (10-20); Calcium,Total 8.8 mg/dL (8.5-10.1); Chloride 106 mmol/L (98-107); Creatinine, Serum 1.09 mg/dL (0.70-1.30); EST Glomerular Filtration Rate 69 mL/min (>60); Est Glom Filt Rate - Afr Amer 83 mL/min (>60); Glucose 128 mg/dL (74-106); Potassium 4.2 mmol/L (3.5-5.1); Sodium Level 141 mmol/L (136-145)
== END | disposition home or self-care (01) ==
LOC: LAB 13:50
PROVIDERS: PCP Preventive Medicine Occupational Medicine; Referring Provider Family Medicine; Visit Provider Family Medicine
DX: I11.0 Hypertensive heart disease with heart failure (principal); I50.22 Chronic systolic (congestive) heart failure; I49.9 Cardiac arrhythmia, unspecified
CPT/HCPCS: 36415; 80048

== ENCOUNTER 2023-01-13 09:15 | Inpatient (IN) | payer MEDICARE, SELFPAY ==
[2023-01-13] VITALS (9 sets, daily range): BP systolic 132–176; BP diastolic 61–164; PULSE 77–96; RESP 12–18; TEMP 36.2–37.1; O2SAT 91–97; BMI 34.5; BMI 36.6
--- NOTE | 2023-01-13 09:30 | RAD_ITS ---
HISTORY: fall -- -- FELL STANDING AT HOME IN BR. C/O LEFT HIP PAIN. HEMATOMA TO BACK OF HEAD NOTED. TECHNIQUE: XR Hip Unilateral with Pelvis when performed; 2-3 Views. COMPARISON: 05/26/2021. FINDINGS: OSSEOUS STRUCTURES: Mild cortical irregularity of the left subcapital femoral head. Note that overlapping bowel shadows may obscure osseous detail. Mild osteopenia. JOINT SPACES: No dislocation. Mild degenerative change. SOFT TISSUES: Surgical clips in the pelvis. RAD/HIP, UNI W/ Pelvis 2-3 Views IMPRESSION: Nondisplaced fracture of the left femoral neck. Electronically Signed: Maribell Dang MD at 11:07 EDT ,
--- NOTE | 2023-01-13 09:30 | RAD_ITS ---
HISTORY: FELL STANDING AT HOME IN BR. LEFT HIP PAIN. HEMATOMA TO BACK OF HEAD. TECHNIQUE: XR Chest 1 View. COMPARISON: 05/26/2021. FINDINGS: CARDIOMEDIASTINAL BORDERS: Cardiac silhouette again upper limits of normal in size. Mediastinal contour unchanged with calcification of the aorta. LUNGS: Chronic interstitial opacities in the lungs. PLEURA: No pleural effusion or pneumothorax seen. OSSEOUS STRUCTURES: Mild degenerative change. RAD/Chest 1 View (Portable) IMPRESSION: Chronic interstitial opacities in the lungs. Electronically Signed: Maribell Dang MD at 10:59 EDT ,
--- NOTE | 2023-01-13 09:30 | CT_ITS ---
HISTORY: fall, trauma. TECHNIQUE: Multiple axial images were obtained of the head without intravenous contrast. A radiation dose optimization technique was used for this scan. 253 images. COMPARISON: 05/26/2021. FINDINGS: BRAIN PARENCHYMA: Multiple foci and zones of low attenuation in the bilateral cerebral white matter compatible with chronic small vessel ischemic gliosis. No acute intra-axial hemorrhage identified. CSF SPACES: Moderate cerebral and moderate-severe cerebellar atrophy. No midline shift or other significant mass effect. No acute extra-axial hemorrhage seen. OTHER: Intact calvarium. Mild left parietal scalp contusion. No significant air fluid levels in the paranasal sinuses or mastoid air cells. Bilateral lens resections. CT/Brain/Head without Contrast IMPRESSION: No acute intracranial process identified. Moderate chronic involutional and white matter changes. Electronically Signed: Maribell Dang MD at 11:02 EDT ,
--- NOTE | 2023-01-13 09:30 | CT_ITS ---
HISTORY: fall, trauma. TECHNIQUE: Helically acquired images were obtained of the cervical spine without contrast. 2D reformatted images were reviewed. A radiation dose optimization technique was used for this scan. 595 images. COMPARISON: None. FINDINGS: VERTEBRAE: No acute fracture identified. No abnormal periprosthetic lucency. ALIGNMENT: 2 mm anterolisthesis of C5-6. INTERVERTEBRAL DISCS: C3-4 anterior spinal fusion hardware with interbody fusion material and fusion across the intervertebral disc space. Partial fusion across the C4-5 intervertebral disc space with osteophytes. Mild degenerative endplate changes of C5-6. Degenerative endplate changes with moderate intervertebral disc space narrowing of C6/7 and C7-T1. Posterior disc bulge osteophyte complexes as well as uncovertebral and facet arthropathy. No critical central canal stenosis. SOFT TISSUES: No prevertebral soft tissue swelling. Mild emphysema of the lung apices. CT/Spine Cervical without Contras IMPRESSION: No evidence for acute fracture or dislocation in the cervical spine. ACDF C3-4. Multilevel degenerative disc disease. Mild anterolisthesis of C5-6. Electronically Signed: Maribell Dang MD at 11:06 EDT ,
--- NOTE | 2023-01-13 09:32 | EX.ED.DYSGE1 ---
HPI History of Present Illness Chief Complaint: Lower Extremity Injury Detail of Chief Complaint: Fall with head injury and left hip injury Informant: patient Narrative Narrative: Patient presents to the emergency department via EMS from home. Patient states that he was in the bathroom getting off the commode when he lost his balance and fell while heading to the sink. Patient normally uses a wheelchair. Complains of striking his head but no loss of consciousness. Complains of left hip pain. Patient not anticoagulated. He denies chest pain or abdominal pain. Denies significant neck pain. [facility] Medical History Arthritis Back contusion Closed head injury without loss of consciousness Contusion of hip, left Fall from slip, trip, or stumble History of prostate cancer Hypertension Spinal stenosis Stroke/cerebrovascular accident Home Medications amlodipine 10 mg tablet 10 mg PO QHS Heart 12/10/15 [History Last Taken 05/25/21 22:00] atorvastatin 20 mg tablet 20 mg PO QHS Cholesterol 12/10/15 [History Last Taken 05/25/21 22:00] levothyroxine 137 mcg tablet 137 mcg PO DAILY Thyroid 12/10/15 [History Last Taken 05/25/21 06:00] calcium carbonate 200 mg calcium (500 mg) chewable tablet 2,000 mg PO DAILY@0800 GERD 03/28/16 [History Last Taken 05/25/21 15:00] cod liver oil 1 ea PO DAILY Supplement 03/28/16 [History Last Taken 05/25/21 15:00] dglftgog-fgm-kxygf acid 0.4 mg-lycopene 300 mcg-lutein 250 mcg tablet (Centrum Silver) 1 ea PO DAILY Vitamin 03/28/16 [History Last Taken 05/25/21 15:00] aspirin 81 mg chewable tablet 81 mg PO QHS Heart 09/01/16 [History Last Taken 05/25/21 22:00] losartan 100 mg tablet 100 mg PO DAILY #30 tabs 05/27/21 [Rx Last Taken Unknown] furosemide 20 mg tablet (Lasix) 20 mg PO DAILY PRN Edema 12/15/21 [History Last Taken Unknown] Allergy/AdvReac Type Severity Reaction Status Date / Time guaifenesin [From Entex LA] Allergy Unknown Verified 01/13/23 09:23 phenylephrine [From Entex LA] Allergy Unknown Verified 01/13/23 09:23 phenylpropanolamine Allergy Unknown Verified 01/13/23 09:23 [From Entex LA] gabapentin AdvReac Severe dizziness Verified 01/13/23 09:23 Surgical History History of arthroscopy of left shoulder History of surgical removal of nipple Hx of bilateral inguinal hernia repair Hx of cataract surgery Hx of eye surgery Hx of prostatectomy Hx of thyroidectomy Hx of vasectomy Social History (Updated 07/01/22 @ 22:[address] Hany Moreno MD) household members: spouse Smoking Status: Former smoker substance use type: does not use ROS ROS ED Review of Systems ROS Unobtainable: other Constitutional Constitutional ED: Reports lethargy; Denies chills, fever(s), sweats or weight loss Eyes Eyes: Denies blurry vision, change in vision or diplopia ENT ENT ED: Denies rhinorrhea or sore throat Cardiovascular Cardiovascular: Denies chest pain, orthopnea or racing heartbeat Respiratory/Chest Respiratory/Chest: Denies cough, dyspnea, dyspnea on exertion, orthopnea or sputum Gastrointestinal Gastrointestinal: Denies abdominal pain, diarrhea, nausea or vomiting Genitourinary Genitourinary ED: Denies dysuria, hematuria or urinary frequency Musculoskeletal Musculoskeletal: Reports neck pain and other Details: Left hip pain ; Denies arthralgias, back pain or myalgias Integumentary Denies abscess, Abrasions or rash Neurologic Neurologic: Reports headache(s); Denies weakness Psychiatric Psychiatric: Denies anxiety, depression or suicidal thoughts Endocrine Endocrinology: Denies polydipsia, polyphagia or polyuria Hematologic/Lymphatic Hematologic/Lymphatic: Denies easy bleeding, easy bruising or lymphadenopathy Allergic/Immunologic Allergic/Immunologic ED: Denies mouth swelling, tongue swelling or urticaria EXAM Physical Exam Const Vital Signs: 01/13/23 09:18 Temperature 97.2 F L Temperature Source Temporal Pulse Rate 90 Respiratory Rate 18 Blood Pressure 176/164 H Blood Pressure Mean 168 Pulse Ox 91 Oxygen Delivery Method Room Air Positive well nourished and well developed General Appearance ED: well developed and NAD HEENT Reports TM's clear and moist mucous membranes HEENT Narrative: Patient with some soft tissue swelling and ecchymosis to left posterior occiput with superficial abrasion. No bony depressions or step-offs noted. normocephalic; Negative for trauma or tenderness Tympanic Membrane ED: Yes TM's clear Eyes PERRL and EOMs intact bilaterally General Eye ED: Negative for pale conjunctiva or scleral icterus Neck no lymphadenopathy, supple and no JVD Neck Narrative: Mild diffuse tenderness over the C-spine. No bony step-offs. Good range of motion. General: Negative for tenderness Chest Wall inspection of chest normal and palpation of chest normal Chest: Negative for tenderness Resp normal respiratory effort and clear to auscultation bilaterally Effort and Inspection: Negative for respiratory distress or pain with movement Auscultation: Negative for rhonchi, wheezes or diminished lung sounds Cardio regular rate, regular rhythm, S1 normal heart sound, S2 normal heart sound and no murmurs Peripheral Pulses: pulses 2+ throughout GI normal to inspection, nondistended, normoactive bowel sounds, soft to palpation, non-tender, non-distended and no masses Back/Spine no CVA tenderness and no thoracic nor lumbar tenderness Extremity Extremity Narrative: Left lower extremity-patient has tenderness to palpation over the left hip. Patient has pain with logrolling. No evidence of shortening or rotational deformity noted. He is neurovascular intact distally. He does have edema of the foot. General Extremety ED: Negative for edema General Extremity: Negative for edema Neuro oriented x3, CN's II-XII intact bilaterally, no sensory deficits noted and gait normal Sensorium / Orientation: awake, alert, oriented to person, oriented to place and oriented to time Motor Exam: strength 5/5 throughout and strength abnormal Psych mental status grossly normal Skin no rashes or lesions noted and no wounds MDM MDM MDM Narrative Medical decision making narrative: Patient presents via EMS after a fall. Patient complains of significant left hip pain. Given his age and evidence of trauma to the head we will obtain a CT scan of the brain to rule out intracranial hemorrhage or skull fracture. We will obtain x-rays of the left hip and pelvis to evaluate for fracture. Basic lab work-up will be obtained. CT of the C-spine also will be obtained. Patient initially did not want a thing for pain. Once return from x-ray patient did request some pain medication and will give fentanyl 50 mcg IV. Case will be discussed with hospitalist as well as orthopedic surgeon on-call to evaluate patient for left hip fracture. Patient will require admission and definitive care. CT scan of the brain obtained showed no intracranial hemorrhage or acute process. CT of the C-spine showed no fractures. Lab Data Attestation: I reviewed the patient's lab results. Labs: Laboratory Results - last 24 hr 01/13/23 09:49 WBC 8.0 RBC 5.06 Hgb 14.0 Hct 42.7 MCV 84.4 MCH 27.7 MCHC 32.8 RDW Std Deviation 42.1 RDW Coeff of Nicky 13.7 Plt Count 237 MPV 9.6 Immature Gran % (Auto) 1.000 H Neut % (Auto) 53.7 Lymph % (Auto) 31.1 Hinds % (Auto) 6.3 Eos % (Auto) 7.3 H Baso % (Auto) 0.6 Absolute Neuts (auto) 4.3 Absolute Lymphs (auto) 2.48 Nucleated RBC % 0 Sodium 142 Potassium 4.2 Chloride 107 Carbon Dioxide 32.0 Anion Gap 3 L BUN 24 H Creatinine 1.18 Estim Creat Clear Calc 43.55 Est GFR (MDRD) Af Amer 76 Est GFR (MDRD) Non-Af 63 BUN/Creatinine Ratio 20.3 H Glucose 130 H Calcium 9.1 Radiography Diagnostic Testing: Clinical Impression(s) from Imaging Studies Brain CT 01/13/23 09:30 IMPRESSION: No acute intracranial process identified. Moderate chronic involutional and white matter changes. Electronically Signed: Maribell Dang MD at 11:02 EDT , Cervical Spine CT 01/13/23 09:30 IMPRESSION: No evidence for acute fracture or dislocation in the cervical spine. ACDF C3-4. Multilevel degenerative disc disease. Mild anterolisthesis of C5-6. Electronically Signed: Maribell Dang MD at 11:06 EDT , Chest X-Ray 01/13/23 09:30 IMPRESSION: Chronic interstitial opacities in the lungs. Electronically Signed: Maribell Dang MD at 10:59 EDT , Hip/Pelvis X-Ray 01/13/23 09:30 IMPRESSION: Nondisplaced fracture of the left femoral neck. Electronically Signed: Maribell Dang MD at 11:07 EDT , Three-view x-rays of left hip and pelvis obtained interpreted by myself as femoral neck fracture. Radiology in agreement. 1 view chest x-ray obtained interpreted by myself as chronic interstitial changes without evidence of infiltrate or pneumothorax or acute disease process. Radiology in agreement. EKG Initial EKG: Attestation: I personally reviewed and interpreted this EKG as follows: Comments: Sinus rhythm with a rate of of 90 bpm with old septal infarct Discharge Plan Triage Chief Complaint: Lower Extremity Injury ED Provider: Denice Savage Dx/Rx/DC Orders Clinical Impression: Benign essential hypertension, Closed head injury, Fall, Closed fracture of left hip Prescriptions: No Action cod liver oil 1 EACH capsule 1 ea PO DAILY calcium carbonate 500 MG tablet 2,000 mg PO DAILY@0800 Centrum Silver 1 EACH tablet 1 ea PO DAILY aspirin 81 MG tablet,chewable 81 mg PO QHS losartan 100 mg tablet 100 mg PO DAILY Qty: 30 0RF furosemide [Lasix] 20 mg tablet 20 mg PO DAILY PRN (Reason: Edema) levothyroxine 137 MCG tablet 137 mcg PO DAILY atorvastatin 20 MG tablet 20 mg PO QHS amlodipine 10 MG tablet 10 mg PO QHS Primary Care Provider: Jonathan Arredondo Referrals: Jonathan Arredondo DO [Primary Care Provider] - Disposition Disposition: Acute Care Hospital [facility]
[2023-01-13 09:55] LABS: Absolute Lymphocyte Count 2.48 X10^3/uL (0.83-4.51); Absolute Neutrophil Count 4.3 X10^3/uL (2.0-7.7); Basophil# 0.05 X10^3/uL; Basophil% 0.6 % (0-1); Eosinophil# 0.58 X10^3/uL; Eosinophils% 7.3 % (0-5); Hematocrit 42.7 % (40-54); Lymphocyte # 2.48 X10^3/ul (0.83-4.51); Lymphocyte % 31.1 % (19-41); Mean Corp Hgb Conc 32.8 g/dL (32-36); Mean Corpuscular Hgb 27.7 pg (27.0-32.0); Mean Corpuscular Volume 84.4 fL (80-94); Mean Platelet Vol. 9.6 fl (6.2-12.0); Monocyte% 6.3 % (0-10); NRBC Flagged by Analyzer 0 % (0-5); Neutrophil # 4.29 X10^3/uL (2.7-7.7); Neutrophil % 53.7 % (47-70); Platelet Count 237 K/mm3 (150-450); RBC Distribution Width CV 13.7 % (11.6-14.6); RBC Distribution Width SD 42.1 fl (35.1-43.9); Red Blood Count 5.06 M/mm3 (4.6-6.2)
[2023-01-13] MEDS: 0.9% Normal Saline (1000mL) 1,000 ML 150 ML IV (10:12)
[2023-01-13 10:30] LABS: Anion Gap 3 (5-15); BUN 24 mg/dL (7-18); BUN/Creat Ratio 20.3 RATIO (10-20); Calcium,Total 9.1 mg/dL (8.5-10.1); Chloride 107 mmol/L (98-107); Creatinine, Serum 1.18 mg/dL (0.70-1.30); EST Glomerular Filtration Rate 63 mL/min (>60); Est Glom Filt Rate - Afr Amer 76 mL/min (>60); Estimated Creatinine Clearance 43.55 ml/min; Glucose 130 mg/dL (74-106); Potassium 4.2 mmol/L (3.5-5.1); Sodium Level 142 mmol/L (136-145)
--- NOTE | 2023-01-13 11:28 | NURSING ---
MED SURG BROCK LT HIP FRACTURE, FALL, CLOSED HEAD INJURY, HYPERTENSION
[2023-01-13] MEDS: fentaNYL 100 MCG/2 ML Ampul 50 MCG IV (11:36)
--- NOTE | 2023-01-13 12:54 | CM.ED ---
Social Work SW received call from [facility] regarding pt. Pt recently discharged from hospice and brought to the emergency room. Pt's had spoken with hospice today asking about possible resuming hospice. Hospice asked if a referral would be made or if pt is being admitted. SW informed her that patient is being admitted at this time. Hospice reports to let them know if patient would like to resume services. Destiny Purcell [employer]AL[employer] ASSURANCE MONITOR, [employer]
[2023-01-13] MEDS: fentaNYL 100 MCG/2 ML Ampul 25 MCG IV (13:06)
[2023-01-13] MEDS: Acetaminophen 500 MG Tablet 1000 MG PO ×2 (14:11→20:38)
[2023-01-13] MEDS: Morphine 2 MG/ML Syringe IV (14:11)
--- NOTE | 2023-01-13 14:19 | HP.PCM.HOS_ITS ---
HPI - General General Date of Admission: 01/13/23 Date of Service: 01/13/23 Chief Complaint: Fall and hip pain HPI Narrative OXANA ZELAYA, is a 82 M with history of hypertension, scalp neoplasm, hemorrhagic stroke, diastolic heart failure, hypothyroidism who presented to [facility] 01/13/2023 after a fall for left hip pain. History obtained in part from chart and report as patient was a somewhat poor historian and no family at bedside. It appears patient uses a wheelchair at baseline and only pivots to the commode or for transferring in today 20 was transferring to her from the commode he lost his balance and fell landing on his left hip. In the ED he was found to have a left nondisplaced femoral neck fracture and hospitalist consulted for admission and Ortho evaluation. Patient seen at bedside he reports that he does have the significant left-sided pain but no headache or changes in vision, chronically has some left lower extremity swelling per patient and he reports he was on hospice but recently was di scharged from hospice though he had difficulty telling me why he was on hospice and just said it had to do with the swelling of his leg. He denies any bowel or bladder changes or other acute complaints [facility] Medical History Arthritis Back contusion Closed head injury without loss of consciousness Contusion of hip, left Fall from slip, trip, or stumble History of prostate cancer Hypertension Spinal stenosis Stroke/cerebrovascular accident Home Medications amlodipine 10 mg tablet 10 mg PO QHS Heart 12/10/15 [History Last Taken 01/12/23] levothyroxine 137 mcg tablet 137 mcg PO DAILY Thyroid 12/10/15 [History Last Taken 01/12/23] cod liver oil 1 ea PO DAILY Supplement 03/28/16 [History Last Taken 01/12/23] npdyrohe-kiy-gefpw acid 0.4 mg-lycopene 300 mcg-lutein 250 mcg tablet (Centrum Silver) 1 ea PO DAILY Vitamin 03/28/16 [History Last Taken 01/12/23] losartan 100 mg tablet 100 mg PO DAILY #30 tabs 05/27/21 [Rx Last Taken 01/12/23] furosemide 20 mg tablet (Lasix) 20 mg PO DAILY PRN Edema 12/15/21 [History Last Taken 01/12/23] calcium carbonate 500 mg calcium (1,250 mg) chewable tablet (Calcium 500) 500 mg PO DAILY 01/13/23 [History Last Taken 01/12/23] pramipexole 0.125 mg tablet 0.125 mg PO DAILY LEG JERKING 01/13/23 [History Last Taken 01/12/23] Allergy/AdvReac Type Severity Reaction Status Date / Time guaifenesin [From Entex LA] Allergy Unknown Verified 01/13/23 09:23 phenylephrine [From Entex LA] Allergy Unknown Verified 01/13/23 09:23 phenylpropanolamine Allergy Unknown Verified 01/13/23 09:23 [From Entex LA] gabapentin AdvReac Severe dizziness Verified 01/13/23 09:23 Surgical History History of arthroscopy of left shoulder History of surgical removal of nipple Hx of bilateral inguinal hernia repair Hx of cataract surgery Hx of eye surgery Hx of prostatectomy Hx of thyroidectomy Hx of vasectomy Social History (Updated 07/01/22 @ 22:[address] Hany Moreno MD) household members: spouse Smoking Status: Former smoker substance use type: does not use ROS ROS Narrative General: Denies fever/chills HENT: Denies headache EYES: Denies changes in vision Resp: Denies cough, denies shortness of breath Cardiac: Denies chest pain GI:, denies changes in bowel, denies nausea/vomiting : Denies changes in urination Extremity: Reports chronic left lower extremity swelling MSK: Some generalized weakness and uses a wheelchair at baseline Neuro: Denies any numbness/tingling Heme: Denies any bleeding or bruising Skin: Denies rashes Psychiatric: No complaints voiced Vital Signs Vital Signs Vital Signs: 01/13/23 09:18 01/13/23 11:28 01/13/23 11:29 Temperature 97.2 F L Temperature Source Temporal Pulse Rate 90 96 95 Respiratory Rate 18 15 15 Respiratory Effort Blood Pressure 176/164 H 132/81 H 157/84 H Blood Pressure Mean 168 98 108 Blood Pressure Source Blood Pressure Position Blood Pressure Location Pulse Ox 91 94 95 Oxygen Delivery Method Room Air Nasal Cannula Oxygen Flow Rate (L/min) 2 01/13/23 11:53 01/13/23 12:49 01/13/23 13:12 Temperature Temperature Source Pulse Rate 82 93 92 Respiratory Rate 12 14 14 Respiratory Effort Blood Pressure 150/73 H 149/67 H 134/64 H Blood Pressure Mean 98 94 87 Blood Pressure Source Blood Pressure Position Blood Pressure Location Pulse Ox 93 94 93 Oxygen Delivery Method Nasal Cannula Nasal Cannula Nasal Cannula Oxygen Flow Rate (L/min) 2 2 2 01/13/23 13:54 01/13/23 13:56 Temperature 97.9 F Temperature Source Oral Pulse Rate 94 Respiratory Rate 18 Respiratory Effort Normal Blood Pressure 135/70 H Blood Pressure Mean 91 Blood Pressure Source Monitor Blood Pressure Position Supine Blood Pressure Location Left Arm Pulse Ox 96 Oxygen Delivery Method Nasal Cannula Nasal Cannula Oxygen Flow Rate (L/min) 2 2 Weight Weight: 103.1 kg Body Mass Index (BMI) 36.6 Physical Exam Narrative General: Alert, intermittently appears to be in pain HEENT: Normocephalic, slightly dry mucous membranes Eyes: Anicteric, Neck: Supple Respiratory: Clear to auscultation bilaterally, normal respiratory effort Cardiovascular: Regular rate GI: Soft, nontender, nondistended Extremities: No edema Musculoskeletal: Moving all extremities but having pain with moving left leg Neuro: No overt focal neurological deficits Skin: Has some erythema/rash on left anterior lower extremity Psych: Cooperative Results Lab / Micro Data 01/13/23 09:49 01/13/23 09:49 Labs: Laboratory Results - last 24 hr 01/13/23 09:49: WBC 8.0, RBC 5.06, Hgb 14.0, Hct 42.7, MCV 84.4, MCH 27.7, MCHC 32.8, RDW Std Deviation 42.1, RDW Coeff of Nicky 13.7, Plt Count 237, MPV 9.6, Immature Gran % (Auto) 1.000 H, Neut % (Auto) 53.7, Lymph % (Auto) 31.1, Mills % (Auto) 6.3, Eos % (Auto) 7.3 H, Baso % (Auto) 0.6, Absolute Neuts (auto) 4.3, Absolute Lymphs (auto) 2.48, Nucleated RBC % 0, Sodium 142, Potassium 4.2, Chloride 107, Carbon Dioxide 32.0, Anion Gap 3 L, BUN 24 H, Creatinine 1.18, Estim Creat Clear Calc 43.55, Est GFR (MDRD) Af Amer 76, Est GFR (MDRD) Non-Af 63, BUN/Creatinine Ratio 20.3 H, Glucose 130 H, Calcium 9.[address] 01/13/23 09:30 IMPRESSION: No acute intracranial process identified. Moderate chronic involutional and white matter changes. Electronically Signed: Maribell Dang MD at 11:02 EDT , Cervical Spine CT 01/13/23 09:30 IMPRESSION: No evidence for acute fracture or dislocation in the cervical spine. ACDF C3-4. Multilevel degenerative disc disease. Mild anterolisthesis of C5-6. Electronically Signed: Maribell Dang MD at 11:06 EDT , Chest X-Ray 01/13/23 09:30 IMPRESSION: Chronic interstitial opacities in the lungs. Electronically Signed: Maribell Dang MD at 10:59 EDT , Hip/Pelvis X-Ray 01/13/23 09:30 IMPRESSION: Nondisplaced fracture of the left femoral neck. Electronically Signed: Maribell Dang MD at 11:07 EDT , Assessment & Plan Assessment/Plan (1) Closed fracture of left hip: (2) Benign essential hypertension: (3) Diastolic heart failure: (4) history of hemorrhagic stroke: (5) Neoplasm of scalp: PLAN: Plan #Closed nondisplaced left femoral neck fracture -CT with impacted subcapital fracture of left femoral neck -Ortho consulted and patient for surgery tomorrow -Pain control -N.p.o. at midnight #Debility and poor baseline functional status -We will need to try to discuss with regarding reason for hospice, based on chart review they may be interested in resuming hospice after fractures addressed #Hypertension -Continue loaded pain #Hypothyroidism -Continue Synthroid #Hx of thyroid, skin, and prostate cancer -Pt reports treatment for these and thyroid was 2-3 years ago and prostate in 1987 -No active treatment or cancer per pt -Will need to #Chronic heart failure with preserved ejection fraction -Takes Lasix as needed -Daily weights, I's and O's #DVT ppx: SCDs Sita English MD Time spent in the patient's overall evaluation,decision-making process, review of diagnostic data, adjustment of management, discussion with other providers, nursing nursing and ancillary staff involved in patient's care documentation, 60 minutes Charges/Coding Visit Charges Inpatient E&M: 93266 Init Hosp L2
--- NOTE | 2023-01-13 14:19 | CT_ITS ---
CT LEFT LOWER EXTREMITY WITH 3-D IMAGING CLINICAL INDICATION: Left femoral neck fracture. TECHNIQUE: Axial CT images of the left lower extremity was performed without IV contrast material. Coronal and sagittal reformats were provided. RADIATION DOSAGE (If Supplied By Facility): CTDIvol = ( 29.24 ) mGy, DLP = ( 3716.58 ) mGycm COMPARISON: Left hip radiographs dated 01/13/2023. FINDINGS: Bones: There is an impacted subcapital fracture of the left femoral neck. There is mild degenerative arthrosis of the left hip joint with mild joint space narrowing and mild marginal osteophyte formation. Osseous structures are otherwise unremarkable. There is no dislocation. No lytic or blastic osseous masses. Soft Tissues: There are mild atherosclerotic calcifications. There is mild subcutaneous soft tissue edema along the posteromedial aspect of the left calf. The superficial soft tissues are otherwise unremarkable without evidence of edema, hematoma, or foreign body. The deep soft tissue structures are unremarkable. CT/Extremity Lower without Contra IMPRESSION: Impacted subcapital fracture of the left femoral neck. Mild degenerative arthrosis of the left hip joint. Electronically Signed: John Main MD at 16:03 EDT ,
--- NOTE | 2023-01-13 15:30 | CON.PCM_ITS ---
Assessment & Plan Assessment/Plan (1) Subcapital fracture of neck of left femur: QUALIFIERS: Encounter type: initial encounter Fracture type: closed Qualified Code(s): S72.012A - Unspecified intracapsular fracture of left femur, initial encounter for closed fracture PLAN: Plan Patient has a minimally displaced left subcapital femoral neck fracture, has left-sided hemiparesis he is a nonambulator and cannot stand on his own. Neuro discussion was had with the patient and his in regard to options of benign neglect percutaneous screw fixation and hemiarthroplasty. After risk benefits alternatives of each procedure were reviewed they elected to proceed with percutaneous screw fixation of the left hip they understand he is to be nonweightbearing for 6 weeks after this. Surgical surgical consent was signed and placed in the chart preoperative antibiotics will be ordered he will be t yped and screened screened, plan to OR for percutaneous screw fixation 01/14/2023 [id number]. HPI Consult Data Date of Consult: 01/13/23 HPI Narrative HPI Narrative: OXANA ZELAYA, is a 82 M sided hemiparesis who is a nonambulator cannot stand on his own had a fall this morning landing on his left side injuring his left hip stating a nondisplaced subcapital femoral neck fracture. He has complaint of left groin pain. [facility] Medical History Arthritis Back contusion Closed head injury without loss of consciousness Contusion of hip, left Fall from slip, trip, or stumble History of prostate cancer Hypertension Spinal stenosis Stroke/cerebrovascular accident Home Medications amlodipine 10 mg tablet 10 mg PO QHS Heart 12/10/15 [History Last Taken 01/12/23] levothyroxine 137 mcg tablet 137 mcg PO DAILY Thyroid 12/10/15 [History Last Taken 01/12/23] cod liver oil 1 ea PO DAILY Supplement 03/28/16 [History Last Taken 01/12/23] zijmdxcw-elj-fscqt acid 0.4 mg-lycopene 300 mcg-lutein 250 mcg tablet (Centrum Silver) 1 ea PO DAILY Vitamin 03/28/16 [History Last Taken 01/12/23] losartan 100 mg tablet 100 mg PO DAILY #30 tabs 05/27/21 [Rx Last Taken 01/12/23] furosemide 20 mg tablet (Lasix) 20 mg PO DAILY PRN Edema 12/15/21 [History Last Taken 01/12/23] calcium carbonate 500 mg calcium (1,250 mg) chewable tablet (Calcium 500) 500 mg PO DAILY 01/13/23 [History Last Taken 01/12/23] pramipexole 0.125 mg tablet 0.125 mg PO DAILY LEG JERKING 01/13/23 [History Last Taken 01/12/23] Allergy/AdvReac Type Severity Reaction Status Date / Time guaifenesin [From Entex LA] Allergy Unknown Verified 01/13/23 09:23 phenylephrine [From Entex LA] Allergy Unknown Verified 01/13/23 09:23 phenylpropanolamine Allergy Unknown Verified 01/13/23 09:23 [From Entex LA] gabapentin AdvReac Severe dizziness Verified 01/13/23 09:23 Surgical History History of arthroscopy of left shoulder History of surgical removal of nipple Hx of bilateral inguinal hernia repair Hx of cataract surgery Hx of eye surgery Hx of prostatectomy Hx of thyroidectomy Hx of vasectomy Social History (Updated 07/01/22 @ 22:[address] Hany Moreno MD) household members: spouse Smoking Status: Former smoker substance use type: does not use Physical Exam Const alert and no apparent distress Constitutional Narrative: Seen with his at bedside General Appearance: cooperative Extremity Extremity Narrative: Positive logroll. He does have venous stasis dermatitis and edema in his left lower extremity he is able to plantarflex and dorsiflex weakly he does have intact sensation to light touch in the lower leg Lab / Micro Data 01/13/23 09:49 01/13/23 09:49 Labs: Laboratory Results - last 24 hr 01/13/23 09:49: WBC 8.0, RBC 5.06, Hgb 14.0, Hct 42.7, MCV 84.4, MCH 27.7, MCHC 32.8, RDW Std Deviation 42.1, RDW Coeff of Nicky 13.7, Plt Count 237, MPV 9.6, Immature Gran % (Auto) 1.000 H, Neut % (Auto) 53.7, Lymph % (Auto) 31.1, [place] % (Auto) 6.3, Eos % (Auto) 7.3 H, Baso % (Auto) 0.6, Absolute Neuts (auto) 4.3, Absolute Lymphs (auto) 2.48, Nucleated RBC % 0, Sodium 142, Potassium 4.2, Chloride 107, Carbon Dioxide 32.0, Anion Gap 3 L, BUN 24 H, Creatinine 1.18, Estim Creat Clear Calc 43.55, Est GFR (MDRD) Af Amer 76, Est GFR (MDRD) Non-Af 63, BUN/Creatinine Ratio 20.3 H, Glucose 130 H, Calcium 9.[address] 01/13/23 09:30 IMPRESSION: No acute intracranial process identified. Moderate chronic involutional and white matter changes. Electronically Signed: Maribell Dang MD at 11:02 EDT , Cervical Spine CT 01/13/23 09:30 IMPRESSION: No evidence for acute fracture or dislocation in the cervical spine. ACDF C3-4. Multilevel degenerative disc disease. Mild anterolisthesis of C5-6. Electronically Signed: Maribell Dang MD at 11:06 EDT , Chest X-Ray 01/13/23 09:30 IMPRESSION: Chronic interstitial opacities in the lungs. Electronically Signed: Maribell Dang MD at 10:59 EDT , Hip/Pelvis X-Ray 01/13/23 09:30 IMPRESSION: Nondisplaced fracture of the left femoral neck. Electronically Signed: Maribell Dang MD at 11:07 EDT ,
[2023-01-13] MEDS: amLODIPine 10 MG Tablet PO (20:38)
[2023-01-13] MEDS: oxyCODONE 5 MG Tablet PO (23:41)
[2023-01-14] VITALS (11 sets, daily range): BP systolic 102–158; BP diastolic 59–95; PULSE 75–98; RESP 15–18; TEMP 36.7–37.2; O2SAT 87–98
[2023-01-14] MEDS: 0.9% Normal Saline (250mL Bag) 250 ML 15 ML IV (03:44)
[2023-01-14 06:21] LABS: Absolute Lymphocyte Count 1.52 X10^3/uL (0.83-4.51); Absolute Neutrophil Count 7.6 X10^3/uL (2.0-7.7); Basophil# 0.06 X10^3/uL; Basophil% 0.6 % (0-1); Eosinophil# 0.85 X10^3/uL; Eosinophils% 7.9 % (0-5); Hematocrit 39.2 % (40-54); Hemoglobin 12.7 g/dL (13.0-16.5); Lymphocyte # 1.52 X10^3/ul (0.83-4.51); Lymphocyte % 14.1 % (19-41); Mean Corp Hgb Conc 32.4 g/dL (32-36); Mean Corpuscular Hgb 27.8 pg (27.0-32.0); Mean Corpuscular Volume 85.8 fL (80-94); Mean Platelet Vol. 9.8 fl (6.2-12.0); Monocyte# 0.73 X10^3/uL; Monocyte% 6.8 % (0-10); NRBC Flagged by Analyzer 0 % (0-5); Neutrophil # 7.57 X10^3/uL (2.7-7.7); POSITIVE MORPHOLOGY YES; Platelet Count 200 K/mm3 (150-450); RBC Distribution Width CV 13.7 % (11.6-14.6); RBC Distribution Width SD 42.7 fl (35.1-43.9); Red Blood Count 4.57 M/mm3 (4.6-6.2); White Blood Count 10.8 K/mm3 (4.4-11.0)
[2023-01-14 06:46] LABS: Differential Indicated SCAN CRITERIA MET
[2023-01-14 07:01] LABS: Anion Gap 5 (5-15); BUN 23 mg/dL (7-18); BUN/Creat Ratio 22.8 RATIO (10-20); Calcium,Total 8.5 mg/dL (8.5-10.1); Chloride 108 mmol/L (98-107); Creatinine, Serum 1.01 mg/dL (0.70-1.30); EST Glomerular Filtration Rate 75 mL/min (>60); Est Glom Filt Rate - Afr Amer 91 mL/min (>60); Estimated Creatinine Clearance 50.89 ml/min; Glucose 124 mg/dL (74-106); Sodium Level 140 mmol/L (136-145); Thyroid Stim Hormone (TSH) 2.75 uIU/mL (0.358-3.74)
--- NOTE | 2023-01-14 07:20 | PCM.PN.HOSP ---
Reason for Visit Reason for Visit: Diagnoses Neoplasm of unspecified behavior of bone, soft tissue, and skin (01/13/23) Essential (primary) hypertension (01/13/23) Unspecified diastolic (congestive) heart failure (01/13/23) Fracture of unspecified part of neck of left femur, initial encounter for closed fracture (01/13/23) Unspecified intracapsular fracture of left femur, initial encounter for closed fracture (01/13/23) Subjective Subjective Patient still have pain sharp pain about every 5 minutes, for surgery today, had no other physical complaints at this time Objective Data Objective Data Vital Signs: Vital Signs Temp Pulse Resp BP Pulse Ox O2 Del Method O2 Flow Rate 98.0 F 75 15 145/63 H 98 Nasal Cannula 2 01/14/23 03:00 01/14/23 03:00 01/14/23 03:00 01/14/23 03:00 01/14/23 03:00 01/14/23 03:00 01/14/23 03:00 Oxygen Flow Rate (L/min) 2 Oxygen Delivery Method Nasal Cannula Weight: 103.1 kg Body Mass Index (BMI) 36.6 Intake & Output: Intake and Output for Last 24 Hours 01/12/23 01/13/23 01/14/23 23:59 23:59 23:59 Intake Total 1075 / 1555 480 / 480 Output Total 350 / 350 Balance 1075 / 1555 130 / 130 Lab / Micro Data 01/14/23 05:50 01/14/23 05:50 Labs: Laboratory Results - last 24 hr 01/13/23 09:49: WBC 8.0, RBC 5.06, Hgb 14.0, Hct 42.7, MCV 84.4, MCH 27.7, MCHC 32.8, RDW Std Deviation 42.1, RDW Coeff of Nicky 13.7, Plt Count 237, MPV 9.6, Immature Gran % (Auto) 1.000 H, Neut % (Auto) 53.7, Lymph % (Auto) 31.1, [place] % (Auto) 6.3, Eos % (Auto) 7.3 H, Baso % (Auto) 0.6, Absolute Neuts (auto) 4.3, Absolute Lymphs (auto) 2.48, Nucleated RBC % 0, Sodium 142, Potassium 4.2, Chloride 107, Carbon Dioxide 32.0, Anion Gap 3 L, BUN 24 H, Creatinine 1.18, Estim Creat Clear Calc 43.55, Est GFR (MDRD) Af Amer 76, Est GFR (MDRD) Non-Af 63, BUN/Creatinine Ratio 20.3 H, Glucose 130 H, Calcium 9.1 01/13/23 17:20: Antibody Screen NEGATIVE 01/14/23 05:50: WBC 10.8, RBC 4.57 L, Hgb 12.7 L, Hct 39.2 L, MCV 85.8, MCH 27.8, MCHC 32.4, RDW Std Deviation 42.7, RDW Coeff of Nicky 13.7, Plt Count 200, MPV 9.8, Immature Gran % (Auto) 0.600, Neut % (Auto) 70.0, Lymph % (Auto) 14.1 L, [place] % (Auto) 6.8, Eos % (Auto) 7.9 H, Baso % (Auto) 0.6, Absolute Neuts (auto) 7.6, Absolute Lymphs (auto) 1.52, Nucleated RBC % 0, Sodium 140, Potassium 4.0, Chloride 108 H, Carbon Dioxide 27.0, Anion Gap 5, BUN 23 H, Creatinine 1.01, Estim Creat Clear Calc 50.89, Est GFR (MDRD) Af Amer 91, Est GFR (MDRD) Non-Af 75, BUN/Creatinine Ratio 22.8 H, Glucose 124 H, Calcium 8.5, TSH 2.75 Radiography Diagnostic Testing: Radiology Impression Brain CT 01/13/23 09:30 IMPRESSION: No acute intracranial process identified. Moderate chronic involutional and white matter changes. Electronically Signed: Maribell Dang MD at 11:02 EDT , Cervical Spine CT 01/13/23 09:30 IMPRESSION: No evidence for acute fracture or dislocation in the cervical spine. ACDF C3-4. Multilevel degenerative disc disease. Mild anterolisthesis of C5-6. Electronically Signed: Maribell Dang MD at 11:06 EDT , Chest X-Ray 01/13/23 09:30 IMPRESSION: Chronic interstitial opacities in the lungs. Electronically Signed: Maribell Dang MD at 10:59 EDT , Hip/Pelvis X-Ray 01/13/23 09:30 IMPRESSION: Nondisplaced fracture of the left femoral neck. Electronically Signed: Maribell Dang MD at 11:07 EDT , Lower Extremity CT 01/13/23 14:19 IMPRESSION: Impacted subcapital fracture of the left femoral neck. Mild degenerative arthrosis of the left hip joint. Electronically Signed: John Main MD at 16:03 EDT , Physical Exam Narrative General: Alert, at this present time no acute distress HEENT: Normocephalic, slightly dry mucous membranes Eyes: Anicteric, Neck: Supple Respiratory: Clear to auscultation bilaterally, normal respiratory effort Cardiovascular: Regular rate GI: Soft, nontender, nondistended Extremities: No edema Musculoskeletal: Moving all extremities but having pain with moving left leg Neuro: No overt focal neurological deficits Skin: Has some erythema/rash on left anterior lower extremity Psych: Cooperative Assessment & Plan Assessment/Plan (1) Closed fracture of left hip: (2) Benign essential hypertension: (3) Diastolic heart failure: (4) history of hemorrhagic stroke: (5) Neoplasm of scalp: PLAN: Plan #Closed nondisplaced left femoral neck fracture -CT with impacted subcapital fracture of left femoral neck -Ortho consulted and patient for surgery tomorrow -Pain control -N.p.o. at midnight -01/14: Patient for surgery at 1330, continue pain control, Tylenol every 8 scheduled #Debility and poor baseline functional status -We will need to try to discuss with regarding reason for hospice, based on chart review they may be interested in resuming hospice after fractures addressed -01/14: We will need PT/OT post surgery, used wheelchair at baseline but was able to assist and pivoting self at home, will not be able to do so at least short-term postoperatively this will need to discuss optimal disposition #Hypertension -Continue amlodipine -01/14: Continue present management #Hypothyroidism -Continue Synthroid #Hx of thyroid, skin, and prostate cancer -Pt reports treatment for these and thyroid was 2-3 years ago and prostate in 1987 -No active treatment or cancer per pt -Will need to clarify why patient was on hospice #Chronic heart failure with preserved ejection fraction -Takes Lasix as needed -Daily weights, I's and O's #DVT ppx: SCDs Sita English MD Time spent in the patient's overall evaluation,decision-making process, review of diagnostic data, adjustment of management, discussion with other providers, nursing nursing and ancillary staff involved in patient's care documentation, 35 minutes Charges/Coding Visit Charges Inpatient E&M: 26082 Subs Hosp L2
[2023-01-14 07:26] LABS: Differential Comment SCANNED
[2023-01-14] MEDS: 0.9% Saline Lock 10 ML Syringe IV (09:33)
[2023-01-14] MEDS: Morphine 2 MG/ML Syringe IV (09:33)
--- NOTE | 2023-01-14 11:48 | CASEMGMT ---
Addendum entered by Paulina Almonte 01/14/23 13:14: FANTASMA HAWK placed information sheet about medical alert systems on pt.'s discharge folder in the room for pt. and his to review as they desire. Original Note: FANTASMA HAWK Assessment: Face to Face with pt for initial transition planning/care coordination assessment. FANTASMA HAWK introduced self and role at [facility], pt voices understanding and consents to assessment. Pt's is also at the bedside per pt's permission. Pt is A&O x4 and answers all questions appropriately at this time. Pt. has Hx of a stroke and this makes it difficult for him to speak as clearly. Care providers, pharmacy, and demographics verified/updated. Admitting Dx: Left Hip Fracture, Closed Head Injury PCP: Maria Elena Specialists: Neurologist ([facility], pt. unsure of who) Preferred Pharmacy:[facility] ([place]) Insurance: [employer] Medicare Prescription Benefit: yes LNOK: Suha Caldreon () Living Will/HCPOA: Pt. states unsure about both. Living Arrangements: Pt lives in a 1 story home, [facility] with his . There are steps and a ramp to enter (pt. uses ramp d/t his wheelchair). Pt. states that prior to this admission, he was on hospice (states it was just a company here in [place]) and hospice was taking care of his ADLs and his was taking care of IADLs. Pt. and his state pt. was placed on hospice d/t the edema in his LLE. Pt's states he had been at least maintaining and so no longer could receive hospice care and so it was discontinued on Thursday and pt. then fell on Thursday. Transportation: Pt states his does most of the transportation. DME: [employer], grab bars, oxygen HS through hospice, and pulse ox. Pt.'s state she would like information about medical alert systems. If needed, they prefer [employer] for DME company. HHC/SNF: Denies any previous SNF or HHC. Pt and his both feel that it would be helpful to go to a SNF for rehab at discharge. Pt's states she cannot take care of pt. at home herself. Pt states no further concerns/needs. CM to follow. Advised pt to ask CM if any further question/concerns/needs arise, voices understanding. Pt Goal: SNF Plan: SNF pending post-surgery status. Follow therapy
[2023-01-14] MEDS: Lactated Ringers 1,000 ML 15 ML IV (12:59)
--- NOTE | 2023-01-14 13:04 | CHAPLAIN ---
Type of Pastoral Visit _x__ Initial Visit ___ Follow-up Visit ___ On-call Visit ___ General Patient Visit ___ Spiritual Assessment ___ Family Conference ___ Bereavement ___ Rapid Response ___ Code Blue ___ Other (describe below) Pastoral Care Referral From _x__ Patient _x__ Family ___ Nurse ___ Physician ___ Deputy Sheriff Court Services ___ Flood Control Engineer ___ Other (describe below) Sacrament/Intervention _x__ Active listening ___ Anointing ___ Faith ___ Bereavement ___ Communion ___ Linette exploration ___ ___ Life review _x__ Prayer ___ Reconciliation ___ Sacrament of Sick _x__ Supportive presence ___ Wedding _x__ Other (describe below) Pastoral Comments patient revoked hospice on Thursday and broke his hip on Thursday; pt will be heading to surgery soon and would like a prayer to be given; family member is in the room and would like their scientologist to be contacted; this banking teacher left voicemail at scientologist office for this patient; words of comfort, offer of ongoing support, and prayer given
[2023-01-14] MEDS: Cefazolin 2 GM in 0.9% Normal Saline (100mL Bag) 100 ML IV (13:53)
--- NOTE | 2023-01-14 14:00 | RAD_ITS ---
STUDY: X-RAY - PELVIS AND LEFT HIP REASON FOR EXAM: Male, 82 years old. Percutaneous screw fixation of femoral neck fracture. TECHNIQUE: 2 intraoperative digital views of the pelvis and hip. COMPARISON: January 13, 2023. FINDINGS: 2 intraoperative digital documentation views show 3 [place] pins placed through the previously described femoral neck fracture. RAD/HIP, UNI W/ Pelvis 2-3 Views IMPRESSION: Pin placement as described. Electronically Signed: Minor Roth MD at 15:06 EDT ,
[2023-01-14] MEDS: Lidocaine 1%/Epi 1:200 (30ml) 30 ML AMPUL (14:35)
--- NOTE | 2023-01-14 14:54 | PCM.OP.BLANK ---
Operative Report Date of Procedure: 01/14/23 Preoperative diagnosis: Left hip subcapital femoral neck fracture valgus impacted nondisplaced Postoperative diagnosis: Same Procedure: Percutaneous screw fixation of left hip Anesthesia: General EBL: 5cc Complications: None Implant :Synthes 7.3mm cannulated hip screws x3 Condition: Stable to PACU Indication for procedure: 82-year-old male patient nonambulator sustained ground-level fall developing a nondisplaced subcapital left femoral neck fracture, we did discuss risk benefits and alternatives of surgical event intervention including hemiarthroplasty versus percutaneous pinning, patient and family wish to proceed with percutaneous pinning he understood he will be nonweightbearing for 6 weeks. Risk benefits and alternatives were reviewed including risk of bleeding infection nerve, artery, bone, tissue damage, blood clot need for further surgery and continued pain, AVN. Procedure: Patient was met in the preoperative holding area once again the operative extremity was identified by both patient and physician was marked. Patient was met by anesthesia and brought back to the operating room on a wheeled cart and transfered the operating table in supine position anesthesia was started. Patient was then positioned on fracture table all bony prominences were well-padded. Fluoroscopy unit was brought in to ensure adequate AP and lateral projections could be achieved. Patient was then prepped and draped in usual sterile fashion a timeout was called to the proper patient procedure and extremity are being contemplated. Fluoroscopy was once again brought in and with a metallic instrument the starting point was marked on the AP and lateral projections on the skin then made a stab incision through the skin and the pin was inserted to the appropriate starting point was advanced into the femoral head this was checked in both AP and lateral projections for position. We then used the parallel drill guide to place anterior and posterior screws superior to the initial screw creating an inverted triangle pattern. these were checked in both AP and lateral projections and measured self-tapping screws were then placed over the pins. Final AP and lateral projections were saved to the PACS system. Screw heads were checked to make sure there is no iliotibial band entrapment the wound was thoroughly irrigated subcutaneous tissue was closed with 0 Vicryl 2-0 Vicryl followed by lidia in the skin standard dressing applied. Patient will be toe-touch weightbearing on the operative side until further notice and x-ray follow-up.
--- NOTE | 2023-01-14 15:01 | PCM.PN.ORT ---
Subjective Subjective Doing well pain controlled still sleeping from anesthesia Objective Data Objective Data Vital Signs: Vital Signs Temp Pulse Resp BP Pulse Ox O2 Del Method O2 Flow Rate 98.1 F 85 18 120/68 95 Nasal Cannula 2 01/14/23 08:04 01/14/23 08:04 01/14/23 08:04 01/14/23 08:04 01/14/23 08:04 01/14/23 08:09 01/14/23 08:09 Oxygen Flow Rate (L/min) 2 Oxygen Delivery Method Nasal Cannula Weight: 227 lb 4.745 oz Body Mass Index (BMI) 36.6 Intake & Output: Intake and Output for Last 24 Hours 01/12/23 01/13/23 01/14/23 23:59 23:59 23:59 Intake Total 1075 / 1555 600 / 600 Output Total 350 / 350 Balance 1075 / 1555 250 / 250 Lab / Micro Data 01/14/23 05:50 01/14/23 05:50 Labs: Laboratory Results - last 24 hr 01/13/23 17:20: Antibody Screen NEGATIVE 01/14/23 05:50: WBC 10.8, RBC 4.57 L, Hgb 12.7 L, Hct 39.2 L, MCV 85.8, MCH 27.8, MCHC 32.4, RDW Std Deviation 42.7, RDW Coeff of Nicky 13.7, Plt Count 200, MPV 9.8, Immature Gran % (Auto) 0.600, Neut % (Auto) 70.0, Lymph % (Auto) 14.1 L, [place] % (Auto) 6.8, Eos % (Auto) 7.9 H, Baso % (Auto) 0.6, Absolute Neuts (auto) 7.6, Absolute Lymphs (auto) 1.52, Nucleated RBC % 0, Differential Comment SCANNED, Sodium 140, Potassium 4.0, Chloride 108 H, Carbon Dioxide 27.0, Anion Gap 5, BUN 23 H, Creatinine 1.01, Estim Creat Clear Calc 50.89, Est GFR (MDRD) Af Amer 91, Est GFR (MDRD) Non-Af 75, BUN/Creatinine Ratio 22.8 H, Glucose 124 H, Calcium 8.5, TSH 2.75 Radiography Diagnostic Testing: Radiology Impression Lower Extremity CT 01/13/23 14:19 IMPRESSION: Impacted subcapital fracture of the left femoral neck. Mild degenerative arthrosis of the left hip joint. Electronically Signed: John Main MD at 16:03 EDT , Physical Exam Extremity Extremity Narrative: Compartments soft palpable pedal pulses dressing clean dry intact Assessment & Plan Assessment/Plan (1) Subcapital fracture of neck of left femur: QUALIFIERS: Encounter type: initial encounter Fracture type: closed Qualified Code(s): S72.012A - Unspecified intracapsular fracture of left femur, initial encounter for closed fracture PLAN: Plan Postop day #0 left hip percutaneous screw fixation for nondisplaced impacted subcapital femoral neck fracture PT OT toe-touch weightbearing left lower extremity DVT prophylaxis SCDs CHERISE hose Eliquis 2.5 mg twice daily for 4 weeks postop Will likely need placement prior to returning home. Dressing should remain undisturbed 5 days postop then should be removed prior to first shower and cleaned and replaced daily at that point. She will follow-up in the office 2 weeks postop, or if in TCU or rehab at [facility] I can see him there.
--- NOTE | 2023-01-14 15:04 | CASEMGMT ---
Social Work SW spoke with Calli from [facility]. Calli confirms pt was discharged from hospice services on 01/12 due to improvement and pt then fell and fractured hip on 01/13. Per RNCM, pt and are interested in custodial care at time of discharge for short term rehab. SW will follow up tomorrow after surgery and initial therapy. AMENA Dillon
[2023-01-14] MEDS: Cefazolin 1 GM/50 ML BAG IV ×2 (15:18→23:15)
[2023-01-14] MEDS: amLODIPine 10 MG Tablet PO (20:07)
[2023-01-14] MEDS: Acetaminophen 500 MG Tablet 1000 MG PO (20:07)
[2023-01-15] VITALS (8 sets, daily range): BP systolic 131–144; BP diastolic 57–74; PULSE 80–90; RESP 18–20; TEMP 36.6–37.5; O2SAT 66–97; BMI 36.5; BMI 36.7
--- NOTE | 2023-01-15 00:08 | NURSING ---
pt sleeping. po drop to 66% with 02 on at 2lnc. o2 increased to 5lnc
[2023-01-15] MEDS: oxyCODONE 5 MG Tablet PO (00:47)
[2023-01-15] MEDS: Acetaminophen 500 MG Tablet 1000 MG PO ×3 (05:16→20:28)
[2023-01-15] MEDS: Levothyroxine 137 MCG Tablet PO (05:16)
[2023-01-15] MEDS: APIXABAN 2.5 MG TABLET (WCH) PO ×2 (05:19→20:27)
[2023-01-15] MEDS: Cefazolin 1 GM/50 ML BAG IV (06:32)
[2023-01-15 07:04] LABS: Absolute Lymphocyte Count 1.38 X10^3/uL (0.83-4.51); Absolute Neutrophil Count 7.4 X10^3/uL (2.0-7.7); Basophil# 0.05 X10^3/uL; Basophil% 0.5 % (0-1); Eosinophil# 0.82 X10^3/uL; Eosinophils% 7.8 % (0-5); Hematocrit 37.6 % (40-54); Hemoglobin 11.6 g/dL (13.0-16.5); Lymphocyte # 1.38 X10^3/ul (0.83-4.51); Lymphocyte % 13.1 % (19-41); Mean Corp Hgb Conc 30.9 g/dL (32-36); Mean Corpuscular Hgb 26.9 pg (27.0-32.0); Mean Platelet Vol. 9.5 fl (6.2-12.0); Monocyte# 0.88 X10^3/uL; Monocyte% 8.3 % (0-10); NRBC Flagged by Analyzer 0 % (0-5); Neutrophil # 7.39 X10^3/uL (2.7-7.7); Neutrophil % 69.8 % (47-70); Platelet Count 177 K/mm3 (150-450); RBC Distribution Width CV 13.9 % (11.6-14.6); RBC Distribution Width SD 44.2 fl (35.1-43.9); Red Blood Count 4.32 M/mm3 (4.6-6.2); White Blood Count 10.6 K/mm3 (4.4-11.0)
[2023-01-15 07:23] LABS: Anion Gap 3 (5-15); BUN 22 mg/dL (7-18); BUN/Creat Ratio 20.4 RATIO (10-20); Chloride 108 mmol/L (98-107); Creatinine, Serum 1.08 mg/dL (0.70-1.30); EST Glomerular Filtration Rate 69 mL/min (>60); Est Glom Filt Rate - Afr Amer 84 mL/min (>60); Estimated Creatinine Clearance 47.59 ml/min; Glucose 132 mg/dL (74-106); Sodium Level 139 mmol/L (136-145)
[2023-01-15] MEDS: Pramipexole Di-HCl 0.125 MG Tablet PO (07:50)
[2023-01-15] MEDS: Calcium Carbonate 500 MG Tablet PO ×3 (07:50→16:20)
[2023-01-15] MEDS: Senna/Docusate Sodium 1 Tablet 2 TABLET PO (08:02)
--- NOTE | 2023-01-15 08:40 | CASEMGMT ---
Discharge Planning A list of SNF providers including quality and resource use data and consistent with the patient's preferred geographic region, medical needs, and insurance network was created in [employer] Guide.? This list was provided to the SW. Anita Van Discharge Planning Asst.
--- NOTE | 2023-01-15 10:16 | CASEMGMT ---
Addendum entered by Ricarda Swan 01/15/23 13:51: SW met with pt and his and discussed discharge plan. Pt and agreeable to SNF with the following preferences. 1. [facility] [address] [facility]. [facility]. Referral to be sent. AMENA Dillon Original Note: Social Work SW met with pt and introduced self and role of SW. SW spoke with pt regarding need for SNF due to functional decline since fall, fracture and surgery. Pt agreeable to placement. A list of SNF providers including quality and resource use data and consistent with the patient?s preferred geographic region, medical needs, and insurance network were provided from the [employer] Guide. SW reviewed list with pt. Pt stating he does not know which facility to choose. Pt states his is at an appointment now and will be here at noon. SW will meet with pt and once she arrives to discuss discharge plan. AMENA Dillon
--- NOTE | 2023-01-15 10:17 | PN.HOSP_ITS ---
Reason for Visit Reason for Visit: Diagnoses Neoplasm of unspecified behavior of bone, soft tissue, and skin (01/13/23) Essential (primary) hypertension (01/13/23) Unspecified diastolic (congestive) heart failure (01/13/23) Fracture of unspecified part of neck of left femur, initial encounter for closed fracture (01/13/23) Unspecified intracapsular fracture of left femur, initial encounter for closed fracture (01/13/23) Subjective Subjective Pain is better today, feels somewhat generally unwell, is on daytime nasal cannula instead of his usual bedtime but denies any shortness of breath and no productive cough Objective Data Objective Data Vital Signs: Vital Signs Temp Pulse Resp BP Pulse Ox O2 Del Method O2 Flow Rate 99.5 F H 90 20 H 132/60 H 95 Nasal Cannula 4 01/15/23 05:14 01/15/23 05:14 01/15/23 05:14 01/15/23 05:14 01/15/23 05:14 01/15/23 05:14 01/15/23 05:14 Oxygen Flow Rate (L/min) 4 Oxygen Delivery Method Nasal Cannula Weight: 103.1 kg Body Mass Index (BMI) 36.5 Intake & Output: Intake and Output for Last 24 Hours 01/13/23 01/14/23 01/15/23 23:59 23:59 23:59 Intake Total 1075 / 1555 894.75 / 1294.75 450 / 450 Output Total 650 / 1150 500 / 500 Balance 1075 / 1555 244.75 / 144.75 -50 / -50 Lab / Micro Data 01/15/23 06:50 01/15/23 06:50 Labs: Laboratory Results - last 24 hr 01/15/23 06:50: WBC 10.6, RBC 4.32 L, Hgb 11.6 L, Hct 37.6 L, MCV 87.0, MCH 26.9 L, MCHC 30.9 L, RDW Std Deviation 44.2 H, RDW Coeff of Nicky 13.9, Plt Count 177, MPV 9.5, Immature Gran % (Auto) 0.500, Neut % (Auto) 69.8, Lymph % (Auto) 13.1 L , [place] % (Auto) 8.3, Eos % (Auto) 7.8 H, Baso % (Auto) 0.5, Absolute Neuts (auto) 7.4, Absolute Lymphs (auto) 1.38, Nucleated RBC % 0, Sodium 139, Potassium 4.0, Chloride 108 H, Carbon Dioxide 28.0, Anion Gap 3 L, BUN 22 H, Creatinine 1.08, Estim Creat Clear Calc 47.59, Est GFR (MDRD) Af Amer 84, Est GFR (MDRD) Non-Af 69, BUN/Creatinine Ratio 20.4 H, Glucose 132 H, Calcium 8.0 L Radiography Diagnostic Testing: Radiology Impression Hip/Pelvis X-Ray 01/14/23 14:00 IMPRESSION: Pin placement as described. Electronically Signed: Minor Roth MD at 15:06 EDT , Physical Exam Narrative General: Alert, at this present time no acute distress HEENT: Normocephalic Eyes: Anicteric, Neck: Supple Respiratory: Somewhat diminished at the bases, normal respiratory effort Cardiovascular: Regular rate GI: Soft, nontender, nondistended Extremities: No edema Musculoskeletal: Moving all extremities Neuro: No overt focal neurological deficits Skin: Has some erythema/rash on left anterior lower extremity Psych: Cooperative Assessment & Plan Assessment/Plan (1) Closed fracture of left hip: (2) Benign essential hypertension: (3) Diastolic heart failure: (4) history of hemorrhagic stroke: (5) Neoplasm of scalp: PLAN: Plan #Closed nondisplaced left femoral neck fracture -CT with impacted subcapital fracture of left femoral neck -Ortho consulted and patient for surgery tomorrow -Pain control -N.p.o. at midnight -01/14: Patient for surgery at 1330, continue pain control, Tylenol every 8 scheduled -01/15: Status post surgery, doing well, continue pain control, PT/OT, patient will need placement #Debility and poor baseline functional status -We will need to try to discuss with regarding reason for hospice, based on chart review they may be interested in resuming hospice after fractures addressed -01/14: We will need PT/OT post surgery, used wheelchair at baseline but was able to assist and pivoting self at home, will not be able to do so at least short-term postoperatively this will need to discuss optimal disposition -01/15: PT/OT #Hypertension -Continue amlodipine -01/14: Continue present management #Hypothyroidism -Continue Synthroid #Hx of thyroid, skin, and prostate cancer -Pt reports treatment for these and thyroid was 2-3 years ago and prostate in 1987 -No active treatment or cancer per pt -Will need to clarify why patient was on hospice -01/15: Was on hospice for ?Lower extremity edema but it improved so he was discharged from hospice but fell the next day #Chronic heart failure with preserved ejection fraction -Takes Lasix as needed -Daily weights, I's and O's -01/15: Daily weights and I's and O's to verify patient not retaining fluid #DVT ppx: SCDs Sita English MD Time spent in the patient's overall evaluation,decision-making process, review of diagnostic data, adjustment of management, discussion with other providers, nursing nursing and ancillary staff involved in patient's care documentation, 35 minutes Charges/Coding Visit Charges Inpatient E&M: 23300 Subs Hosp L2
[2023-01-15] MEDS: Polyethylene Glycol 3350 17 GM PACKET PO ×2 (11:48→20:27)
--- NOTE | 2023-01-15 13:38 | PCM.PN.ORT ---
Subjective Subjective Patient was seen and examined today. Patient states that he is doing fairly well overall. He did have restless legs causing some pain this morning, but is doing well now. Also, the ice that was over his hip was bothering him and since they have removed that he is doing better. He states that his pain is controlled. He worked with physical therapy and states that it went well. He denies nausea, vomiting, chest pain, shortness of breath, fevers or chills. Objective Data Objective Data Vital Signs: Vital Signs Temp Pulse Resp BP Pulse Ox O2 Del Method O2 Flow Rate 97.9 F 89 18 144/63 H 97 Nasal Cannula 2 01/15/23 08:00 01/15/23 08:00 01/15/23 09:00 01/15/23 08:00 01/15/23 08:00 01/15/23 09:00 01/15/23 12:14 Oxygen Flow Rate (L/min) 2 Oxygen Delivery Method Nasal Cannula Weight: 227 lb 4.745 oz Body Mass Index (BMI) 36.5 Intake & Output: Intake and Output for Last 24 Hours 01/13/23 01/14/23 01/15/23 23:59 23:59 23:59 Intake Total 1075 / 1555 894.75 / 1294.75 450 / 450 Output Total 650 / 1150 500 / 500 Balance 1075 / 1555 244.75 / 144.75 -50 / -50 Lab / Micro Data 01/15/23 06:50 01/15/23 06:50 Labs: Laboratory Results - last 24 hr 01/15/23 06:50: WBC 10.6, RBC 4.32 L, Hgb 11.6 L, Hct 37.6 L, MCV 87.0, MCH 26.9 L, MCHC 30.9 L, RDW Std Deviation 44.2 H, RDW Coeff of Nicky 13.9, Plt Count 177, MPV 9.5, Immature Gran % (Auto) 0.500, Neut % (Auto) 69.8, Lymph % (Auto) 13.1 L, [place] % (Auto) 8.3, Eos % (Auto) 7.8 H, Baso % (Auto) 0.5, Absolute Neuts (auto) 7.4, Absolute Lymphs (auto) 1.38, Nucleated RBC % 0, Sodium 139, Potassium 4.0, Chloride 108 H, Carbon Dioxide 28.0, Anion Gap 3 L, BUN 22 H, Creatinine 1.08, Estim Creat Clear Calc 47.59, Est GFR (MDRD) Af Amer 84, Est GFR (MDRD) Non-Af 69, BUN/Creatinine Ratio 20.4 H, Glucose 132 H, Calcium 8.0 L Radiography Diagnostic Testing: Radiology Impression Hip/Pelvis X-Ray 01/14/23 14:00 IMPRESSION: Pin placement as described. Electronically Signed: Minor Roth MD at 15:06 EDT , Physical Exam Const alert, oriented x3 and no apparent distress General Appearance: cooperative Extremity Extremity Narrative: Upon inspection of the left lower extremity there is a CHERISE hose in place. Patient is able to plantarflex and dorsiflex. Negative Homans. Soft compartments. Mepilex is intact over the incision site and is clean, dry and intact. Slight tenderness to palpation around the incision site. Palpable pedal pulses. Assessment & Plan Assessment/Plan (1) Subcapital fracture of neck of left femur: QUALIFIERS: Encounter type: initial encounter Fracture type: closed Qualified Code(s): S72.012A - Unspecified intracapsular fracture of left femur, initial encounter for closed fracture PLAN: Plan Postop day #1 left hip percutaneous screw fixation for nondisplaced impacted subcapital femoral neck fracture PT/OT toe-touch weightbearing left lower extremity DVT prophylaxis SCDs, CHERISE hose, Eliquis 2.5 mg twice daily for 4 weeks postop Will likely need placement prior to returning home. Social work is looking into placement. Dressing should remain undisturbed 5 days postop and then should be removed prior to first shower and cleaned and replaced daily at that point. He will follow-up in the office 2 weeks postop, or if in TCU or rehab at [facility] and Dr. Kenney can see him there.
--- NOTE | 2023-01-15 14:00 | CASEMGMT ---
Discharge Planning [facility] Anita Van, Discharge Planning Asst.
[2023-01-15] MEDS: traMADol 50 MG Tablet PO ×2 (14:52→20:28)
--- NOTE | 2023-01-15 15:34 | CASEMGMT ---
Social Work [facility] is able to accept pt and precert has been started at this time. SW met with pt and and updated and both are agreeable to dc plan. Plan: [facility], pending precMAENA Albright
[2023-01-15] MEDS: amLODIPine 10 MG Tablet PO (20:27)
[2023-01-16 04:30] VITALS: BP 134/52; PULSE 88; RESP 18; TEMP 36.7; O2SAT 93
[2023-01-16] MEDS: Levothyroxine 137 MCG Tablet PO (04:59)
[2023-01-16] MEDS: Acetaminophen 500 MG Tablet 1000 MG PO (04:59)
[2023-01-16] MEDS: traMADol 50 MG Tablet PO (04:59)
[2023-01-16 07:46] LABS: Absolute Neutrophil Count 6.4 X10^3/uL (2.0-7.7); Basophil# 0.03 X10^3/uL; Basophil% 0.3 % (0-1); Eosinophil# 0.77 X10^3/uL; Eosinophils% 7.9 % (0-5); Hemoglobin 11.6 g/dL (13.0-16.5); Lymphocyte % 16.5 % (19-41); Mean Corp Hgb Conc 32.2 g/dL (32-36); Monocyte# 0.92 X10^3/uL; Monocyte% 9.5 % (0-10); NRBC Flagged by Analyzer 0 % (0-5); Neutrophil # 6.35 X10^3/uL (2.7-7.7); Neutrophil % 65.4 % (47-70); Platelet Count 171 K/mm3 (150-450); RBC Distribution Width CV 13.9 % (11.6-14.6); RBC Distribution Width SD 44.1 fl (35.1-43.9); Red Blood Count 4.14 M/mm3 (4.6-6.2); White Blood Count 9.7 K/mm3 (4.4-11.0)
[2023-01-16 08:27] LABS: Anion Gap 3 (5-15); BUN 24 mg/dL (7-18); BUN/Creat Ratio 22.9 RATIO (10-20); Calcium,Total 8.2 mg/dL (8.5-10.1); Chloride 106 mmol/L (98-107); Creatinine, Serum 1.05 mg/dL (0.70-1.30); EST Glomerular Filtration Rate 72 mL/min (>60); Est Glom Filt Rate - Afr Amer 87 mL/min (>60); Estimated Creatinine Clearance 48.95 ml/min; Glucose 116 mg/dL (74-106); Sodium Level 138 mmol/L (136-145)
[2023-01-16 08:37] VITALS: O2SAT 91
[2023-01-16 08:44] VITALS: BP 130/62; PULSE 82; RESP 18; TEMP 36.8; O2SAT 92
[2023-01-16 08:46] VITALS: BP 130/62; PULSE 83; RESP 18; TEMP 36.8; O2SAT 92
[2023-01-16] MEDS: APIXABAN 2.5 MG TABLET (WCH) PO (08:51)
[2023-01-16] MEDS: Calcium Carbonate 500 MG Tablet PO ×2 (08:51→12:23)
[2023-01-16] MEDS: Pramipexole Di-HCl 0.125 MG Tablet PO (08:51)
[2023-01-16] MEDS: Polyethylene Glycol 3350 17 GM PACKET PO (08:51)
[2023-01-16 09:26] VITALS: O2SAT 92
--- NOTE | 2023-01-16 11:13 | PCM.TXEXTCAR ---
Diet Diet Order/Speech Therapy: 01/14/23 17:51 Diet: Regular - General Is pt able to select menu?: Yes Routine Orders/Code Status Suppository Type: Dulcolax 10mg Suppository Frequency: Daily PRN O2 Frequency: Continuous Keep PO Greater than or Equal to (%): 2 Wound(s) Back of Head: Wound Type: Laceration left hip: Wound Type: Surgical Incision Therapies Physical Therapy: Eval and Treat Occupational Therapy: Eval and Treat Speech Therapy: Eval and Treat Problem/Diagnosis (1) Subcapital fracture of neck of left femur: Status: Acute Code(s): S72.012A - Unspecified intracapsular fracture of left femur, initial encounter for closed fracture Plan #Closed nondisplaced left femoral neck fracture #Debility and poor baseline functional status #Hypertension #Hypothyroidism #Hx of thyroid, skin, and prostate cancer #Chronic heart failure with preserved ejection fraction OXANA ZELAYA, is a 82 M with history of hypertension, scalp neoplasm, hemorrhagic stroke, diastolic heart failure, hypothyroidism who presented to [facility] 01/13[facility]2023 after a fall for left hip pain. He was found to have a nondisplaced impacted subcapital femoral neck fracture and underwent left hip percutaneous screw fixation on 01/14/2023. Did well postoperatively, did report he has some chronic swallowing difficulties with no acute changes so we will need speech therapy to work with him at SNF as well and this was recommended. Patient doing much better on day of discharge. Does require small amount of oxygen at rest but has no increased shortness of breath and is not having a productive cough or any other respiratory signs or symptoms that are concerning, may be that this is chronic in nature and and covered here because he was on pulse ox. Wean O2 as tolerated. Discharge instructions as follows: -You will need to continue Eliquis 2.5 mg twice daily for 4 weeks and CHERISE hose -Dressing should remain undisturbed for 5 days postoperatively and then removed prior to for shower and cleaned and replaced daily -Please follow-up with with Dr. Kenney in the office 2 weeks postoperative. please call their office to schedule hospital follow-up appointment upon discharge. -You will need to work with speech therapy at the detention facility as well as any other therapies indicated -Please call your primary care provider's office upon discharge to schedule a hospital follow up within 1 week. -For any concerning signs or symptoms please call 911 or proceed to the nearest emergency department Allergies/Procedures Done in Hospital Allergies guaifenesin [From [employer]tex [place]] Allergy (Verified 01/13/23 09:23) Unknown PER DR STRONG'S ORDERS phenylephrine [From Entex [place]] Allergy (Verified 01/13/23 09:23) Unknown PER DR STRONG'S ORDERS phenylpropanolamine [From [employer]tex [place]] Allergy (Verified 01/13/23 09:23) Unknown PER DR STRONG'S ORDERS gabapentin Adverse Reaction (Severe, Verified 01/13/23 09:23) dizziness Procedures: - (left hip percutaneous screw fixation for nondisplaced impacted subcapital femoral neck fracture) Type of Care/Length of Stay Estimated LOS: Convalescent Care Less Than 30 days Type of Care Needed: Skilled Rehab Potential: Fair Prognosis: Fair Additional Orders/Day of Discharge Day of Discharge: 01/16/23 Discharge Plan Admission Admit Date/Time: 01/13/23 12:32 Primary Reason for Your Visit: Fall with hip pain and fracture Attending Provider: Sita English Primary Care Provider: Jonathan Arredondo Consulting Providers: Bradley Kenney Instructions Patient Instructions: ED Fall Prevention Additional Instructions / Restrictions: DISCHARGE INSTRUCTIONS PLEASE READ *Please take this with you to your next doctors appointment* -You will need to continue Eliquis 2.5 mg twice daily for 4 weeks and CHERISE hose -Dressing should remain undisturbed for 5 days postoperatively and then removed prior to for shower and cleaned and replaced daily -Please follow-up with with Dr. Kenney in the office 2 weeks postoperative. please call their office to schedule hospital follow-up appointment upon discharge. -You will need to work with speech therapy at the detention facility as well as any other therapies indicated -Please call your primary care provider's office upon discharge to schedule a hospital follow up within 1 week. -For any concerning signs or symptoms please call 911 or proceed to the nearest emergency department Discharge Orders/Prescriptions Prescriptions: New acetaminophen 500 mg Tablet 1,000 mg PO Q8 5 Days Qty: 0 0RF polyethylene glycol 3350 17 gram Powder In Packet 17 g PO BID Qty: 0 0RF Eliquis 5 mg Tablet 2.5 mg PO BID 27 Days Qty: 0 0RF tramadol 50 mg Tablet 50 mg PO TID PRN (Reason: pain 6-10) 3 Days Qty: 9 0RF Continued cod liver oil 1 EACH capsule 1 ea PO DAILY Centrum Silver 1 EACH tablet 1 ea PO DAILY furosemide [Lasix] 20 mg tablet 20 mg PO DAILY PRN (Reason: Edema) calcium carbonate [Calcium 500] 500 mg calcium (1,250 mg) tablet,chewable 500 mg PO DAILY pramipexole 0.125 mg tablet 0.125 mg PO DAILY levothyroxine 137 MCG tablet 137 mcg PO DAILY amlodipine 10 MG tablet 10 mg PO QHS Changed losartan 100 mg tablet 50 mg PO DAILY Qty: 30 0RF Referrals / Follow Up: Bradley Kenney DO [Med Staff - Active Staff] - Within 2 Weeks Jonathan Arredondo DO [Primary Care Provider] - Within 1 Week Disposition Disposition (needs filled in before D/C Order can be placed): [facility] Facility (1) Subcapital fracture of neck of left femur Qualifiers: Encounter type: initial encounter Fracture type: closed Qualified Code(s): S72.012A - Unspecified intracapsular fracture of left femur, initial encounter for closed fracture
--- NOTE | 2023-01-16 11:38 | PCM.DC.SUM ---
Providers Date of Admission: 01/13/23 Date of Discharge: 01/16/23 Primary Care Physician: Dr. Jonathan Arredondo, Consultations 01/13/23 12:31 Consult: Orthopedics Routine Consulting Provider: Bradley Kenney Reason for Consult: hip fracture EMERGENT Consult: No MD Notified: Yes Date Notified: 01/13/23 Time Notified: 15:11 Method of Notification: Verbal Reason For Visit: LEFT HIP FRACTURE, CLOSED HEAD INJURY Diagnosis Discharge Diagnosis (1) Subcapital fracture of neck of left femur: Status: Acute Code(s): S72.012A - Unspecified intracapsular fracture of left femur, initial encounter for closed fracture Qualifiers: Encounter type: initial encounter Fracture type: closed Qualified Code(s): S72.012A - Unspecified intracapsular fracture of left femur, initial encounter for closed fracture Plan #Closed nondisplaced left femoral neck fracture #Debility and poor baseline functional status #Hypertension #Hypothyroidism #Hx of thyroid, skin, and prostate cancer #Chronic heart failure with preserved ejection fraction Medications at Discharge Home Medications amlodipine 10 mg tablet 10 mg PO QHS Heart 12/10/15 levothyroxine 137 mcg tablet 137 mcg PO DAILY Thyroid 12/10/15 cod liver oil 1 ea PO DAILY Supplement 03/28/16 [id number]-[id number] acid 0.4 mg-lycopene 300 mcg-lutein 250 mcg tablet (Centrum Silver) 1 ea PO DAILY Vitamin 03/28/16 furosemide 20 mg tablet (Lasix) 20 mg PO DAILY PRN Edema 12/15/21 calcium carbonate 500 mg calcium (1,250 mg) chewable tablet (Calcium 500) 500 mg PO DAILY 01/13/23 pramipexole 0.125 mg tablet 0.125 mg PO DAILY LEG JERKING 01/13/23 acetaminophen 500 mg tablet 1,000 mg (2 x 500 mg) PO Q8 5 days #0 tabs 01/16/23 apixaban 5 mg tablet (Eliquis) 2.5 mg (1/2 x 5 mg) PO BID 27 days #0 tabs 01/16/23 losartan 100 mg tablet 50 mg (1/2 x 100 mg) PO DAILY #30 tabs 01/16/23 polyethylene glycol 3350 17 gram oral powder packet 17 g PO BID #0 ea 01/16/23 tramadol 50 mg tablet 50 mg PO TID PRN pain 6-10 3 days #9 tabs 01/16/23 Hospital Course Operations - (s/p left femur repair) Summary of Care Provided Minutes Spent on Discharge: 32 Hospital Course: OXANA ZELAYA, is a 82 M with history of hypertension, scalp neoplasm, hemorrhagic stroke, diastolic heart failure, hypothyroidism who presented to [facility] 01/13/2023 after a fall for left hip pain. He was found to have a nondisplaced impacted subcapital femoral neck fracture and underwent left hip percutaneous screw fixation on 01/14/2023. Did well postoperatively, did report he has some chronic swallowing difficulties with no acute changes so we will need speech therapy to work with him at SNF as well and this was recommended. Patient doing much better on day of discharge. Does require small amount of oxygen at rest but has no increased shortness of breath and is not having a productive cough or any other respiratory signs or symptoms that are concerning, may be that this is chronic in nature and and covered here because he was on pulse ox. Wean O2 as tolerated. Discharge instructions as follows: -You will need to continue Eliquis 2.5 mg twice daily for 4 weeks and CHERISE hose -Dressing should remain undisturbed for 5 days postoperatively and then removed prior to for shower and cleaned and replaced daily -Please follow-up with with Dr. Kenney in the office 2 weeks postoperative. please call their office to schedule hospital follow-up appointment upon discharge. -You will need to work with speech therapy at the assisted facility as well as any other therapies indicated -Please call your primary care provider's office upon discharge to schedule a hospital follow up within 1 week. -For any concerning signs or symptoms please call 911 or proceed to the nearest emergency department Physical Exam Narrative General: Alert, at this present time no acute distress HEENT: Normocephalic Eyes: Anicteric, Neck: Supple Respiratory: Somewhat diminished at the bases, normal respiratory effort Cardiovascular: Regular rate GI: Soft, nontender, nondistended Extremities: No edema Musculoskeletal: Moving all extremities Neuro: No overt focal neurological deficits Skin: Has some erythema/rash on left anterior lower extremity Psych: Cooperative Weight / BMI Weight Weight: 103.1 kg Body Mass Index (BMI) 36.5 ABG / Lab / Microbiology Data 01/16/23 07:20 01/16/23 07:20 Laboratory: Laboratory Results - last 24 hr 01/16/23 07:20: WBC 9.7, RBC 4.14 L, Hgb 11.6 L, Hct 36.0 L, MCV 87.0, MCH 28.0, MCHC 32.2, RDW Std Deviation 44.1 H, RDW Coeff of Nicky 13.9, Plt Count 171, MPV 10.0, Immature Gran % (Auto) 0.400, Neut % (Auto) 65.4, Lymph % (Auto) 16.5 L, [place] % (Auto) 9.5, Eos % (Auto) 7.9 H, Baso % (Auto) 0.3, Absolute Neuts (auto) 6.4, Absolute Lymphs (auto) 1.60, Nucleated RBC % 0, Sodium 138, Potassium 4.0, Chloride 106, Carbon Dioxide 29.0, Anion Gap 3 L, BUN 24 H, Creatinine 1.05, Estim Creat Clear Calc 48.95, Est GFR (MDRD) Af Amer 87, Est GFR (MDRD) Non-Af 72, BUN/Creatinine Ratio 22.9 H, Glucose 116 H, Calcium 8.2 L D/C Instructions Discharge Activity: - (Wheelchair) Meaningful Use Info Meaningful Use Diagnoses (Choose all that apply): None applicable Discharge Plan Admission Admit Date/Time: 01/13/23 12:32 Primary Reason for Your Visit: Fall with hip pain and fracture Attending Provider: Sita English Primary Care Provider: Jonathan Arredondo Consulting Providers: Bradley Kenney Instructions Patient Instructions: ED Fall Prevention Additional Instructions / Restrictions: DISCHARGE INSTRUCTIONS PLEASE READ *Please take this with you to your next doctors appointment* -You will need to continue Eliquis 2.5 mg twice daily for 4 weeks and CHERISE hose -Dressing should remain undisturbed for 5 days postoperatively and then removed prior to for shower and cleaned and replaced daily -Please follow-up with with Dr. Kenney in the office 2 weeks postoperative. please call their office to schedule hospital follow-up appointment upon discharge. -You will need to work with speech therapy at the assisted facility as well as any other therapies indicated -Please call your primary care provider's office upon discharge to schedule a hospital follow up within 1 week. -For any concerning signs or symptoms please call 911 or proceed to the nearest emergency department Discharge Orders/Prescriptions Prescriptions: New acetaminophen 500 mg Tablet 1,000 mg PO Q8 5 Days Qty: 0 0RF polyethylene glycol 3350 17 gram Powder In Packet 17 g PO BID Qty: 0 0RF Eliquis 5 mg Tablet 2.5 mg PO BID 27 Days Qty: 0 0RF tramadol 50 mg Tablet 50 mg PO TID PRN (Reason: pain 6-10) 3 Days Qty: 9 0RF Continued cod liver oil 1 EACH capsule 1 ea PO DAILY Centrum Silver 1 EACH tablet 1 ea PO DAILY furosemide [Lasix] 20 mg tablet 20 mg PO DAILY PRN (Reason: Edema) calcium carbonate [Calcium 500] 500 mg calcium (1,250 mg) tablet,chewable 500 mg PO DAILY pramipexole 0.125 mg tablet 0.125 mg PO DAILY levothyroxine 137 MCG tablet 137 mcg PO DAILY amlodipine 10 MG tablet 10 mg PO QHS Changed losartan 100 mg tablet 50 mg PO DAILY Qty: 30 0RF Referrals / Follow Up: Bradley Kenney DO [Med Staff - Active Staff] - Within 2 Weeks Jonathan Arredondo DO [Primary Care Provider] - Within 1 Week Disposition Disposition (needs filled in before D/C Order can be placed): [facility] Charges/Coding Visit Charges Inpatient E&M: 22308 Disch Hosp >30min
--- NOTE | 2023-01-16 11:54 | CASEMGMT ---
Social Work 3709 exemption from completed in [facility] for admission to the [facility] for skilled level of care under convalescent stay. AMENA Dillon
[2023-01-16] MEDS: Losartan Potassium 50 MG Tablet PO (12:23)
[2023-01-16 12:24] VITALS: O2SAT 84; O2SAT 93
--- NOTE | 2023-01-16 12:46 | CASEMGMT ---
Discharge Planning Discharge orders, signed med list, and transport time sent to [facility] via [facility]. [facility] will transport patient by cot at 1:30p. Nursing, SW, patient, and his updated. Anita Van, Discharge Planning Asst.
== END 2023-01-16 14:00 | disposition skilled nursing facility (03) | DRG 481 ==
LOC: ED 11:16 → MS3 11:59
PROVIDERS: Orthopaedic Surgery; Admitting Provider Internal Medicine; Emergency Provider Emergency Medicine; PCP Preventive Medicine Occupational Medicine; Visit Provider Internal Medicine
PROC: 0QH734Z Insertion of Internal Fixation Device into Left Upper Femur, Percutaneous Approach (ICD-10-PCS; principal; 2023-01-14 13:30)
DX: S72.012A Unspecified intracapsular fracture of left femur, initial encounter for closed fracture (principal); I50.32 Chronic diastolic (congestive) heart failure; I11.0 Hypertensive heart disease with heart failure; E03.9 Hypothyroidism, unspecified; R53.81 Other malaise; Z87.891 Personal history of nicotine dependence; Z51.5 Encounter for palliative care; Z85.850 Personal history of malignant neoplasm of thyroid; Z85.828 Personal history of other malignant neoplasm of skin; Z85.46 Personal history of malignant neoplasm of prostate; Z86.73 Personal history of transient ischemic attack (TIA), and cerebral infarction without residual deficits
CPT/HCPCS: 36415; 70450; 71045; 72125; 73502; 73700; 76000; 80048; 84443; 85025; 86850; 86900; 86901; 93005; 94668; 97110; 97162; 97166; 97530; 97535; 99285; C1713; J7030; J7050; J7120; A4216; J2405

== ENCOUNTER → 2023-01-27 | Outpatient (REF) | payer MEDICARE, SELFPAY ==
[2023-01-27 08:42] LABS: Hematocrit 41.6 % (40-54); Hemoglobin 12.9 g/dL (13.0-16.5); Mean Corpuscular Hgb 26.9 pg (27.0-32.0); Mean Corpuscular Volume 86.7 fL (80-94); Mean Platelet Vol. 9.5 fl (6.2-12.0); Platelet Count 472 K/mm3 (150-450); RBC Distribution Width CV 13.6 % (11.6-14.6); RBC Distribution Width SD 43.2 fl (35.1-43.9); White Blood Count 9.5 K/mm3 (4.4-11.0)
[2023-01-27 09:06] LABS: Anion Gap 6 (5-15); BUN 15 mg/dL (7-18); BUN/Creat Ratio 15.2 RATIO (10-20); Chloride 103 mmol/L (98-107); Creatinine, Serum 0.99 mg/dL (0.70-1.30); EST Glomerular Filtration Rate 77 mL/min (>60); Est Glom Filt Rate - Afr Amer 93 mL/min (>60); Glucose 111 mg/dL (74-106); Potassium 3.9 mmol/L (3.5-5.1); Sodium Level 139 mmol/L (136-145)
== END ==
LOC: OLS.WCC 05:00
PROVIDERS: PCP Preventive Medicine Occupational Medicine; Visit Provider Family Medicine
DX: I50.9 Heart failure, unspecified (principal); Z79.899 Other long term (current) drug therapy
CPT/HCPCS: 36415; 80048; 85027